=== PATIENT | female | born 1985 | race American Indian/Alaskan Native ===

== ENCOUNTER 2016-11-19 09:13 | Emergency (ER) | payer MEDICARE ==
[2016-11-19 09:42] VITALS: BP 155/83
[2016-11-19 10:09] LABS: Basophils % (Auto) 0.9 % (0.0-1.8); Hematocrit 30.8 % (30.3-42.9); Hemoglobin 10.2 gm/dl (10.1-14.3); Mean Corpuscular HGB Conc 33 % (30-34); Mean Corpuscular Hemoglobin 32 pg (28-32); Mean Corpuscular Volume 97 fl (79-97); Platelet Count 213 K/mm3 (140-440); Red Blood Count 3.16 M/mm3 (3.65-5.03); White Blood Count 7.2 K/mm3 (4.5-11.0)
[2016-11-19 10:29] LABS: Albumin 3.8 g/dL (3.9-5); Albumin/Globulin Ratio 1.4 %; BUN/Creatinine Ratio 4.94; Bilirubin,Total 0.2 mg/dL (0.1-1.2); Potassium 4.3 mmol/L (3.6-5.0); Total Protein 6.6 g/dL (6.3-8.2)
[2016-11-19 10:49] LABS: Calcium 8.7 mg/dL (8.4-10.2)
[2016-11-19 15:55] LABS: Bacteria,Urine 1+ /HPF (Negative); Bilirubin,Urine NEG (Negative); Blood,Urine MOD (Negative); Ketones,Urine NEG (Negative); Leukocyte Esterase,Urine LG (Negative); Nitrite,Urine NEG (Negative); Urobilinogen,Urine < 2.0 mg/dL (<2.0)
[2016-11-19] MEDS ORDERED: XYLOCAINE 1% MPF 5 mL INFILTRATI ONE (17:15)
[2016-11-19] MEDS ORDERED: ROCEPHIN IM STA (17:15)
--- NOTE | 2016-11-19 17:32 | Emergency Department Report ---
Entered by KAREEM KENNEY, acting as scribe for OFE SKINNER PA. <OFE SKINNER - Last Filed: 11/19/16 17:28> ED Abdominal Pain HPI - General Chief Complaint: Abdominal Pain Stated Complaint: POSS UTI Time Seen by Provider: 11/19/16 16:31 Source: patient Mode of arrival: Ambulatory Limitations: No Limitations - History of Present Illness Initial Comments: 30 y/o female with a PMHx of diabetes mellitus, HTN, and renal disease presents to the ED c/o lower abdominal pain that began 1 week ago. Rates pain a 4/10 in severity, which she describes as aching in quality. Aggravated with nothing and alleviated with nothing. Patient states she belives she has a urinary tract infection. Patient reports associated foul smell from vagina, but she denies dysuria, urgency, and frequency. LMP 11/19/2016. NKDA. Denies any fever or chills. Patient is currently on her menstrual cycle. Denies any nausea or vomiting. Denies any back pain. MD Complaint: abdominal pain Onset/Timin -: week(s) Location: LLQ Radiation: none Migration to: no migration Severity: mild Severity scale (0 -10): 4 Quality: aching Consistency: constant Improves With: nothing Worsens With: nothing Context: other (possible UTI) Associated Symptoms: denies other symptoms, other (foul smell from vagina). denies: nausea, vomiting, diarrhea, fever, chills, constipation, dysuria, hematuria Treatments Prior to Arrival: other (none) - Related Data LMP Date: 11/19/16 Previous Rx's Medication Instructions Recorded Last Taken Type Insulin Glargine,Hum.rec.anlog 5 units SQ QHS #30 ml 12/02/15 Unknown Rx [Lantus Solostar] Labetalol [Normodyne TAB] 300 mg PO BID #60 tablet 12/02/15 Unknown Rx Methyldopa-Hctz 250-15 mg 500 mg PO DAILY #30 12/02/15 Unknown Rx NIFEdipine XL [Procardia Xl] 60 mg PO Q12HR #60 tablet 12/02/15 Unknown Rx oxyCODONE /ACETAMINOPHEN [Percocet 1 tab PO Q6HR PRN #20 tablet 12/02/15 Unknown Rx 5/325 mg] Nitrofurantoin [place]/M-Cryst 100 mg PO Q12HR #14 capsule 11/19/16 Unknown Rx [Macrobid CAP] Allergies Allergy/AdvReac Type Severity Reaction Status Date / Time No Known Allergies Allergy Verified 11/19/16 09:37 ED Review of Systems Comment: All other systems reviewed and negative Constitutional: denies: chills, fever ENT: denies: throat pain, congestion Respiratory: denies: cough, orthopnea, shortness of breath, SOB with exertion, SOB at rest, stridor, wheezing Cardiovascular: denies: chest pain, palpitations Gastrointestinal: abdominal pain (LLQ). denies: nausea, vomiting, diarrhea, constipation, hematemesis, melena, hematochezia Genitourinary: other (foul smell from vagina). denies: urgency, dysuria, frequency, hematuria, discharge, abnormal menses Musculoskeletal: denies: back pain, joint swelling, arthralgia, myalgia Skin: denies: rash, lesions Neurological: denies: headache, weakness, numbness, paresthesias ED Past Medical Hx - Past Medical History Previous Medical History?: Yes Hx Hypertension: Yes (12 years ago) Hx Congestive Heart Failure: No Hx Diabetes: Yes (Age 11) Hx Renal Disease: Yes (MWF) Hx Asthma: No Hx COPD: No - Surgical History Past Surgical History?: Yes Additional Surgical History: Fistula to right arm. vas cath to right chest. - Family History Family history: diabetes, hypertension - Social History Smoking Status: Never Smoker Substance Use Type: None - Medications Home Medications: Home Medications Medication Instructions Recorded Confirmed Last Taken Type Insulin Glargine,Hum.rec.anlog 5 units SQ QHS #30 ml 12/02/15 Unknown Rx [Lantus Solostar] Labetalol [Normodyne TAB] 300 mg PO BID #60 tablet 12/02/15 Unknown Rx Methyldopa-Hctz 250-15 mg 500 mg PO DAILY #30 12/02/15 Unknown Rx NIFEdipine XL [Procardia Xl] 60 mg PO Q12HR #60 tablet 12/02/15 Unknown Rx oxyCODONE /ACETAMINOPHEN [Percocet 1 tab PO Q6HR PRN #20 tablet 12/02/15 Unknown Rx 5/325 mg] Nitrofurantoin [place]/M-Cryst 100 mg PO Q12HR #14 capsule 11/19/16 Unknown Rx [Macrobid CAP] ED Physical Exam - General Limitations: No Limitations General appearance: alert, in no apparent distress - Head Head exam: Present: atraumatic, normocephalic, normal inspection - Eye Eye exam: Present: normal appearance, PERRL, EOMI Pupils: Present: normal accommodation - ENT ENT exam: Present: normal exam, normal orophraynx, mucous membranes moist, TM's normal bilaterally, normal external ear exam - Neck Neck exam: Present: normal inspection, full ROM. Absent: tenderness, lymphadenopathy - Respiratory Respiratory exam: Present: normal lung sounds bilaterally. Absent: respiratory distress, wheezes, rales, rhonchi, stridor, accessory muscle use, decreased breath sounds - Cardiovascular Cardiovascular Exam: Present: regular rate, normal rhythm, normal heart sounds - GI/Abdominal GI/Abdominal exam: Present: soft, tenderness (LLQ), normal bowel sounds. Absent : distended, guarding, rebound, rigid, organomegaly, mass, bruit, pulsatile mass - Extremities Exam Extremities exam: Present: normal inspection, full ROM, normal capillary refill , other (No CCE right arm fistula.). Absent: tenderness, pedal edema, joint swelling, calf tenderness - Back Exam Back exam: Present: normal inspection, full ROM. Absent: tenderness, CVA tenderness (R), CVA tenderness (L), muscle spasm, paraspinal tenderness, vertebral tenderness, rash noted - Neurological Exam Neurological exam: Present: alert, oriented X3, normal gait, reflexes normal. Absent: motor sensory deficit - Psychiatric Psychiatric exam: Present: normal affect, normal mood - Skin Skin exam: Present: warm, dry, intact, normal color. Absent: rash ED Course Vital Signs 11/19/16 09:38 Temperature 98.1 F Pulse Rate 83 Respiratory 20 Rate Blood Pressure 155/83 O2 Sat by Pulse 100 Oximetry - Reevaluation(s) Reevaluation #1: 11/19/16 17:22 Patient stable throughout ED course. ED Medical Decision Making - Lab Data Result diagrams: 11/19/16 09:49 11/19/16 09:49 Lab Results 11/19/16 11/19/16 11/19/16 Range/Units 09:43 09:49 09:49 WBC 7.2 (4.5-11.0) K/mm3 RBC 3.16 L (3.65-5.03) M/mm3 Hgb 10.2 (10.1-14.3) gm/dl Hct 30.8 (30.3-42.9) % MCV 97 (79-97) fl MCH 32 (28-32) pg MCHC 33 (30-34) % RDW 17.0 H (13.2-15.2) % Plt Count 213 (140-440) K/mm3 Lymph % (Auto) 27.1 (13.4-35.0) % [place] % (Auto) 8.2 H (0.0-7.3) % Eos % (Auto) 4.0 (0.0-4.3) % Baso % (Auto) 0.9 (0.0-1.8) % Lymph # 2.0 (1.2-5.4) K/mm3 [place] # 0.6 (0.0-0.8) K/mm3 Eos # 0.3 (0.0-0.4) K/mm3 Baso # 0.1 (0.0-0.1) K/mm3 Seg Neutrophils % 59.8 (40.0-70.0) % Seg Neutrophils # 4.3 (1.8-7.7) K/mm3 Sodium 141 (137-145) mmol/L Potassium 4.3 (3.6-5.0) mmol/L Chloride 101.0 (98-107) mmol/L Carbon Dioxide 24 (22-30) mmol/L Anion Gap 20 mmol/L BUN 46 H (7-17) mg/dL Creatinine 9.3 H (0.7-1.2) mg/dL Estimated GFR 6 ml/min BUN/Creatinine Ratio 4.94 % Glucose 113 H (65-100) mg/dL Calcium 8.7 (8.4-10.2) mg/dL Total Bilirubin 0.20 (0.1-1.2) mg/dL AST 17 (5-40) units/L ALT 16 (7-56) units/L Alkaline Phosphatase 102 (35-129) units/L Total Protein 6.6 (6.3-8.2) g/dL Albumin 3.8 L (3.9-5) g/dL Albumin/Globulin Ratio 1.4 % Lipase 53 (13-60) units/L HCG, Qual (Negative) Urine Color Yellow (Yellow) Urine Turbidity Clear (Clear) Urine pH 8.0 H (5.0-7.0) Ur Specific [place] 1.010 (1.003-1.030) Urine Protein 100 mg/dl (Negative) mg/dL Urine Glucose (UA) 150 (Negative) mg/dL Urine Ketones Neg (Negative) mg/dL Urine Blood Mod (Negative) Urine Nitrite Neg (Negative) Urine Bilirubin Neg (Negative) Urine Urobilinogen < 2.0 (<2.0) mg/dL Ur Leukocyte Esterase Lg (Negative) Urine WBC (Auto) 176.0 H (0.0-6.0) /HPF Urine RBC (Auto) 22.0 (0.0-6.0) /HPF U Epithel Cells (Auto) 1.0 (0-13.0) /HPF Urine Bacteria (Auto) 1+ (Negative) /HPF 11/19/16 Range/Units 09:49 WBC (4.5-11.0) K/mm3 RBC (3.65-5.03) M/mm3 Hgb (10.1-14.3) gm/dl Hct (30.3-42.9) % MCV (79-97) fl MCH (28-32) pg MCHC (30-34) % RDW (13.2-15.2) % Plt Count (140-440) K/mm3 Lymph % (Auto) (13.4-35.0) % [place] % (Auto) (0.0-7.3) % Eos % (Auto) (0.0-4.3) % Baso % (Auto) (0.0-1.8) % Lymph # (1.2-5.4) K/mm3 [place] # (0.0-0.8) K/mm3 Eos # (0.0-0.4) K/mm3 Baso # (0.0-0.1) K/mm3 Seg Neutrophils % (40.0-70.0) % Seg Neutrophils # (1.8-7.7) K/mm3 Sodium (137-145) mmol/L Potassium (3.6-5.0) mmol/L Chloride (98-107) mmol/L Carbon Dioxide (22-30) mmol/L Anion Gap mmol/L BUN (7-17) mg/dL Creatinine (0.7-1.2) mg/dL Estimated GFR ml/min BUN/Creatinine Ratio % Glucose (65-100) mg/dL Calcium (8.4-10.2) mg/dL Total Bilirubin (0.1-1.2) mg/dL AST (5-40) units/L ALT (7-56) units/L Alkaline Phosphatase (35-129) units/L Total Protein (6.3-8.2) g/dL Albumin (3.9-5) g/dL Albumin/Globulin Ratio % Lipase (13-60) units/L HCG, Qual Negative (Negative) Urine Color (Yellow) Urine Turbidity (Clear) Urine pH (5.0-7.0) Ur Specific [place] (1.003-1.030) Urine Protein (Negative) mg/dL Urine Glucose (UA) (Negative) mg/dL Urine Ketones (Negative) mg/dL Urine Blood (Negative) Urine Nitrite (Negative) Urine Bilirubin (Negative) Urine Urobilinogen (<2.0) mg/dL Ur Leukocyte Esterase (Negative) Urine WBC (Auto) (0.0-6.0) /HPF Urine RBC (Auto) (0.0-6.0) /HPF U Epithel Cells (Auto) (0-13.0) /HPF Urine Bacteria (Auto) (Negative) /HPF Patient urine culture sent and pending. Moderate blood urine because she started her menses today. She has positive protein and glucose in her urine. He is a diabetic and she is also on dialysis 3 days a week. Serum glucose at 113 - Medical Decision Making ED Course: Is here complaining of left lower quadrant abdominal pain with foul- smelling urine and thinks she has a urinary tract infection because she's had similar incidents in the past. Stable CBC, BUN and creatinine is elevated patient is on dialysis. This is chronic. Her blood glucose is 113. Patient with positive urinary tract infection with moderate amount of present she started her period today, she also has protein and glucose in her urine and she is diabetic. High blood pressure and kidney failure. All lab results and treatment plan explained to patient. test negative. Given Rocephin 1 g IM in emergency room to cover urinary tract infection and also urine culture sent and pending. Patient discharged home in stable condition with prescription for Macrobid and to follow up with her primary care physician in 2 days. ED Disposition Disposition: DC- TO HOME OR SELFCARE Is pt being admited?: No Does the pt Need Aspirin: No Condition: Stable Instructions: Urinary Tract Infection in Women (ED), Abdominal Pain (ED) Additional Instructions: Please follow up with your primary care physician in 2 days. Take Macrobid as prescribed Prescriptions: Nitrofurantoin [place]/M-Cryst [Macrobid CAP] 100 mg PO Q12HR #14 capsule Referrals: LANIE CHURCHILL MD [Primary Care Provider] - 11/21/16 Forms: Work/School Release Form(ED) <KAYLA PATEL P - Last Filed: 11/19/16 18:34> ED Medical Decision Making - Lab Data Result diagrams: 11/19/16 09:49 11/19/16 09:49 This documentation as recorded by the PABLITO gates JASMINE,accurately reflects the service I personally performed and the decisions made by ,OFE SKINNER PA.
== END 2016-11-19 17:43 | disposition home or self-care (01) ==
LOC: ED 09:13
DX: R10.32 Left lower quadrant pain (principal); N89.8 Other specified noninflammatory disorders of vagina; E11.22 Type 2 diabetes mellitus with diabetic chronic kidney disease; I12.0 Hypertensive chronic kidney disease with stage 5 chronic kidney disease or end stage renal disease; N18.6 End stage renal disease; Z99.2 Dependence on renal dialysis
CPT/HCPCS: 36415; 80053; 81001; 83690; 84703; 85025; 87076; 87086; 87186; 96372; 99283; J0696

== ENCOUNTER 2017-05-18 11:34 | Emergency (ER) | payer MEDICARE ==
[2017-05-18 12:51] LABS: Basophils % (Auto) 0.9 % (0.0-1.8); Calcium 8.8 mg/dL (8.4-10.2); Chloride 101.7 mmol/L (98-107); Eosinophils % (Auto) 3.4 % (0.0-4.3); Hematocrit 31.6 % (30.3-42.9); Hemoglobin 10.6 gm/dl (10.1-14.3); Mean Corpuscular HGB Conc 33 % (30-34); Mean Corpuscular Hemoglobin 33 pg (28-32); Mean Corpuscular Volume 99 fl (79-97); Platelet Count 182 K/mm3 (140-440); Potassium 4.3 mmol/L (3.6-5.0); Red Blood Count 3.21 M/mm3 (3.65-5.03); Red Cell Distribution Width 16.3 % (13.2-15.2); White Blood Count 5.2 K/mm3 (4.5-11.0)
[2017-05-18] MEDS ORDERED: CATAPRES PO ONE (17:15)
[2017-05-18] MEDS ORDERED: NORCO 5/325 PO ONE (17:35)
--- NOTE | 2017-05-18 17:41 | Emergency Department Report ---
HPI - General Chief Complaint: High BP Time Seen by Provider: 05/18/17 17:15 - HPI HPI: Pfeiffer 24 The patient is a 31-year-old female presenting with a chief complaint of hypertension. The patient states she was at hemodialysis today and was felt to be hypertensive with a systolic of 230. The patient states she developed a "pounding" headache and sharp left-sided chest pain that has been constant while at dialysis. Patient did admit to some shortness of breath but denies nausea/vomiting or diaphoresis. The patient states she had a normal cardiac catheterization 2 months ago at [facility] Location: [See above] Duration: One day Quality: "Pounding" Severity: 03/10 Modifying factors: [see above] Context: [see above] Mode of transportation: [not driving] ED Past Medical Hx - Past Medical History Previous Medical History?: Yes Hx Hypertension: Yes (12 years ago) Hx Diabetes: Yes (Age 11) Hx Renal Disease: Yes (MWF) - Surgical History Past Surgical History?: Yes Additional Surgical History: Fistula to right arm. vas cath to right chest. - Family History Family history: no significant - Social History Smoking Status: Never Smoker Substance Use Type: None - Medications Home Medications: Home Medications Medication Instructions Recorded Confirmed Last Taken Type Insulin Glargine,Hum.rec.anlog 5 units SQ QHS #30 ml 12/02/15 12/16/16 12/15/16 Rx [Lantus Solostar] Cholecalciferol (Vitamin D3) 2,000 unit PO QDAY 12/16/16 12/16/16 12/15/16 History [Vitamin D3 2,000 unit] Acetaminophen [Acetaminophen TAB] 325 mg PO Q4H PRN #30 tablet 12/18/16 Unknown Rx Labetalol [Normodyne TAB] 400 mg PO BID #60 tablet 12/18/16 Unknown Rx Losartan [Cozaar] 50 mg PO QDAY #30 tablet 12/18/16 Unknown Rx Methyldopa [Aldomet] 250 mg PO BID #60 tablet 12/18/16 Unknown Rx amLODIPine [Norvasc] 10 mg PO QDAY #30 tablet 12/18/16 Unknown Rx oxyCODONE /ACETAMINOPHEN [Percocet 1 tab PO Q6H PRN #30 tablet 12/18/16 Unknown Rx 5/325 mg] ED Review of Systems ROS: Stated complaint: HYPERTENSIVE/SOB Other details as noted in HPI Constitutional: denies: diaphoresis Eyes: other Respiratory: shortness of breath (right subconjunctival hemorrhage) Cardiovascular: chest pain Gastrointestinal: denies: nausea, vomiting Neurological: headache Physical Exam - Physical Exam Vital Signs: Vital Signs 05/18/17 05/18/17 05/18/17 12:04 15:52 15:57 Temperature 99.2 F Pulse Rate 83 80 Respiratory 18 18 18 Rate Blood Pressure 171/91 Blood Pressure 204/95 [Left] O2 Sat by Pulse 98 98 98 Oximetry 05/18/17 17:26 Temperature Pulse Rate 80 Respiratory Rate Blood Pressure 204/95 Blood Pressure [Left] O2 Sat by Pulse Oximetry Physical Exam: GENERAL: The patient is well-developed well-nourished female resting on stretcher not appearing to be in acute distress. [] HEENT: Normocephalic. Atraumatic. Extraocular motions are intact. Patient has moist mucous membranes. NECK: Supple. No meningitic signs are noted. Trachea midline CHEST/LUNGS: Clear to auscultation. There is no respiratory distress noted. HEART/CARDIOVASCULAR: Regular. There is no tachycardia. There is no gallop rub or murmur. ABDOMEN: Abdomen is soft, nontender. Patient has normal bowel sounds. There is no abdominal distention. SKIN: There is no rash. There is no edema. There is no diaphoresis. NEURO: The patient is awake, alert, and oriented. The patient is cooperative. The patient has no focal neurologic deficits. The patient has normal speech. Cranial nerves II through XII grossly intact, no drift MUSCULOSKELETAL: There is no evidence of acute injury. ED Course Vital Signs 05/18/17 05/18/17 05/18/17 12:04 15:52 15:57 Temperature 99.2 F Pulse Rate 83 80 Respiratory 18 18 18 Rate Blood Pressure 171/91 Blood Pressure 204/95 [Left] O2 Sat by Pulse 98 98 98 Oximetry 05/18/17 17:26 Temperature Pulse Rate 80 Respiratory Rate Blood Pressure 204/95 Blood Pressure [Left] O2 Sat by Pulse Oximetry ED Medical Decision Making - Lab Data Result diagrams: 05/18/17 12:17 05/18/17 12:17 Laboratory Tests 05/18/17 05/18/17 05/18/17 12:17 12:17 15:25 WBC 5.2 RBC 3.21 L Hgb 10.6 Hct 31.6 MCV 99 H MCH 33 H MCHC 33 RDW 16.3 H Plt Count 182 Lymph % (Auto) 20.9 [place] % (Auto) 5.9 Eos % (Auto) 3.4 Baso % (Auto) 0.9 Lymph # 1.1 L [place] # 0.3 Eos # 0.2 Baso # 0.0 Seg Neutrophils % 68.9 Seg Neutrophils # 3.6 Sodium 141 Potassium 4.3 Chloride 101.7 Carbon Dioxide 24 Anion Gap 20 BUN 27 H Creatinine 5.5 H Estimated GFR 11 BUN/Creatinine Ratio 5 Glucose 146 H Calcium 8.8 Troponin T 0.013 0.012 HCG, Qual 05/18/17 05/18/17 17:34 17:40 WBC RBC Hgb Hct MCV MCH MCHC RDW Plt Count Lymph % (Auto) [place] % (Auto) Eos % (Auto) Baso % (Auto) Lymph # [place] # Eos # Baso # Seg Neutrophils % Seg Neutrophils # Sodium Potassium Chloride Carbon Dioxide Anion Gap BUN Creatinine Estimated GFR BUN/Creatinine Ratio Glucose Calcium Troponin T 0.010 HCG, Qual Negative - EKG Data -: EKG Interpreted by Nd EKG shows normal: sinus rhythm Rate: normal - EKG Data When compared to previous EKG there are: previous EKG unavailable Interpretation: nonspecific ST-T wave rosita (T-wave inversion in lead V2) - Radiology Data Radiology results: report reviewed (CT head), image reviewed (CT head) FINAL REPORT PROCEDURE: CT HEAD/BRAIN WO CON TECHNIQUE: Computerized tomography of the head was performed without contrast material. HISTORY: hypertension, headache COMPARISON: No prior studies are available for comparison. FINDINGS: There is no CT evidence of intracranial mass, hemorrhage, acute territorial infarction, or hydrocephalus. Bilateral dural calcifications are noted. Intracranial arteries are symmetric in density. Calvarium is intact. There is mild right sphenoid sinus mucosal thickening. IMPRESSION: No CT evidence of acute intracranial abnormality Transcribed By: [facility] Dictated By: KURTIS HENLEY M.D. Electronically Authenticated By: KURTIS HENLEY M.D. Signed Date/Time: 05/18/17 1525 DD/ 1525 TD/TT: 05/18/17 1525 - Medical Decision Making Patient had normal cardiac catheterization 2 months ago ruling out obstructive disease. Patient's symptoms likely a function of her hypertension. Will control blood pressure - Differential Diagnosis hypertensive urgency, ACS, intracranial hemorrhage Critical care attestation.: If time is entered above; I have spent that time in minutes in the direct care of this critically ill patient, excluding procedure time. ED Disposition Clinical Impression: Hypertensive urgency Disposition: DC-01 TO HOME OR SELFCARE Is pt being admited?: No Does the pt Need Aspirin: No Condition: Stable Instructions: Hypertensive Crisis (ED) Additional Instructions: Return to the emergency department immediately should you develop worsening symptoms, fever, inability to tolerate food or liquid or any other concerns. Referrals: PRIMARY CARE, [Primary Care Provider] - 3-5 Days LANIE CHURCHILL MD [Staff Physician] - [facility] Time of Disposition: 21:35
[2017-05-18] MEDS ORDERED: APRESOLINE IV ONE ×2 (19:07→19:46)
--- NOTE | 2017-05-18 19:28 | Cat Scan Report ---
FINAL REPORT PROCEDURE: CT HEAD/BRAIN WO CON TECHNIQUE: Computerized tomography of the head was performed without contrast material. HISTORY: hypertension, headache COMPARISON: No prior studies are available for comparison. FINDINGS: There is no CT evidence of intracranial mass, hemorrhage, acute territorial infarction, or hydrocephalus. Bilateral dural calcifications are noted. Intracranial arteries are symmetric in density. Calvarium is intact. There is mild right sphenoid sinus mucosal thickening. IMPRESSION: No CT evidence of acute intracranial abnormality
[2017-05-18 21:36] VITALS: BP 129/71
== END 2017-05-18 21:56 | disposition home or self-care (01) ==
LOC: ED 11:34
DX: I16.0 Hypertensive urgency (principal); I12.0 Hypertensive chronic kidney disease with stage 5 chronic kidney disease or end stage renal disease; N18.6 End stage renal disease; E11.22 Type 2 diabetes mellitus with diabetic chronic kidney disease; Z99.2 Dependence on renal dialysis
CPT/HCPCS: 36415; 70450; 80048; 84484; 84703; 85025; 93005; 93010; 96374; 96376; 99284; J0360

== ENCOUNTER 2017-05-19 00:24 | Inpatient (IN) | payer MEDICARE ==
[2017-05-19 03:32] LABS: Albumin 4.3 g/dL (3.9-5); Albumin/Globulin Ratio 1.7 %; Bilirubin,Total 0.6 mg/dL (0.1-1.2); Calcium 9.5 mg/dL (8.4-10.2); Chloride 101.8 mmol/L (98-107); Potassium 5.5 mmol/L (3.6-5.0); Total Protein 6.8 g/dL (6.3-8.2)
[2017-05-19 03:35] LABS: Basophils % (Auto) 0.9 % (0.0-1.8); Eosinophils % (Auto) 3.2 % (0.0-4.3); Hematocrit 33.8 % (30.3-42.9); Hemoglobin 11.1 gm/dl (10.1-14.3); Mean Corpuscular HGB Conc 33 % (30-34); Mean Corpuscular Hemoglobin 32 pg (28-32); Mean Corpuscular Volume 99 fl (79-97); Platelet Count 203 K/mm3 (140-440); Red Blood Count 3.42 M/mm3 (3.65-5.03); Red Cell Distribution Width 16.5 % (13.2-15.2); White Blood Count 5.8 K/mm3 (4.5-11.0)
[2017-05-19 14:58] LABS: Bilirubin,Urine NEG (Negative); Blood,Urine SM (Negative); Ketones,Urine NEG (Negative); Leukocyte Esterase,Urine NEG (Negative); Nitrite,Urine NEG (Negative); Urobilinogen,Urine < 2.0 mg/dL (<2.0)
[2017-05-19] MEDS ORDERED: NORMODYNE IV ONE (17:17)
[2017-05-19] MEDS ORDERED: D50W (25GM) Syringe IV ONE (17:17)
[2017-05-19] MEDS ORDERED: DILAUDID IV ONE (17:17)
[2017-05-19] MEDS ORDERED: ZOFRAN IV ONE (17:17)
[2017-05-19] MEDS ORDERED: SODIUM BICARBONATE IV ONE (17:17)
--- NOTE | 2017-05-19 17:20 | Emergency Department Report ---
ED General Adult HPI - General Chief complaint: Abdominal Pain Stated complaint: VOMITING Time Seen by Provider: 05/19/17 17:07 Source: patient, RN notes reviewed, old records reviewed Mode of arrival: Ambulatory Limitations: No Limitations - History of Present Illness Initial comments: Nephrology: Dr. Villatoro Past medical history: Hypertension, diabetes, end-stage renal disease on dialysis As a 31-year-old female. The patient presents to the ER with a complaint of abdominal pain, nausea and vomiting. The abdominal pain started last night. It is in the bilateral lower quadrants. It is sharp. It increases with palpation. It decreases with rest. No irritative or obstructive urinary symptoms. Chronic vaginal discharge which is not a new worsening or different. No sexual contacts within the past year. Patient reports no chest pain, no shortness of breath, complains of mild throbbing headache, 4 episodes of nonbloody, nonbilious emesis. -: Gradual Location: abdomen Severity scale (0 -10): 10 Quality: aching Consistency: constant Improves with: rest Worsens with: movement Associated Symptoms: headaches, loss of appetite, malaise, nausea/vomiting, weakness. denies: confusion, chest pain, cough, diaphoresis, fever/chills - Related Data Home Medications Medication Instructions Recorded Confirmed Last Taken Cholecalciferol (Vitamin D3) 2,000 unit PO DAILY 12/16/16 05/19/17 05/18/17 [Vitamin D3 2,000 unit] Labetalol HCl 300 mg PO BID 05/19/17 05/19/17 05/18/17 Losartan Potassium [Cozaar] 50 mg PO BID 05/19/17 05/19/17 05/18/17 Methyldopa [Aldomet] 500 mg PO DAILY 05/19/17 05/19/17 05/18/17 amLODIPine [Norvasc] 10 mg PO DAILY 05/19/17 05/19/17 05/18/17 Allergies Allergy/AdvReac Type Severity Reaction Status Date / Time No Known Allergies Allergy Verified 12/15/16 10:43 ED Review of Systems ROS: Stated complaint: VOMITING Other details as noted in HPI Constitutional: malaise. denies: fever ENT: denies: epistaxis Respiratory: denies: cough Cardiovascular: chest pain Gastrointestinal: abdominal pain, nausea, vomiting Genitourinary: denies: dysuria Musculoskeletal: as per HPI Neurological: headache ED Past Medical Hx - Past Medical History Previous Medical History?: Yes Hx Hypertension: Yes (12 years ago) Hx Congestive Heart Failure: No Hx Diabetes: Yes (Age 11) Hx Renal Disease: Yes (MWF) Hx Asthma: No Hx COPD: No - Surgical History Past Surgical History?: Yes Additional Surgical History: Fistula to right arm. vas cath to right chest. - Social History Smoking Status: Never Smoker - Medications Home Medications: Home Medications Medication Instructions Recorded Confirmed Last Taken Type Cholecalciferol (Vitamin D3) 2,000 unit PO DAILY 12/16/16 05/19/17 05/18/17 History [Vitamin D3 2,000 unit] Labetalol HCl 300 mg PO BID 05/19/17 05/19/17 05/18/17 History Losartan Potassium [Cozaar] 50 mg PO BID 05/19/17 05/19/17 05/18/17 History Methyldopa [Aldomet] 500 mg PO DAILY 05/19/17 05/19/17 05/18/17 History amLODIPine [Norvasc] 10 mg PO DAILY 05/19/17 05/19/17 05/18/17 History ED Physical Exam - General Limitations: No Limitations General appearance: alert, in no apparent distress - Head Head exam: Present: atraumatic, normocephalic - Eye Eye exam: Present: normal appearance, PERRL, EOMI, other (visual acuity intact to finger counting, color perception, reading at a close distance). Absent: nystagmus - ENT ENT exam: Present: normal exam, normal orophraynx, mucous membranes moist, normal external ear exam - Neck Neck exam: Present: normal inspection, full ROM - Respiratory Respiratory exam: Present: normal lung sounds bilaterally. Absent: respiratory distress, chest wall tenderness - Cardiovascular Cardiovascular Exam: Present: regular rate, normal rhythm, normal heart sounds. Absent: systolic murmur, diastolic murmur, rubs, gallop - GI/Abdominal GI/Abdominal exam: Present: soft, tenderness, normal bowel sounds, other (his bilateral lower quadrant abdominal tenderness, there is no rebound, guarding or peritoneal signs). Absent: distended, guarding, rebound, rigid, pulsatile mass - Extremities Exam Extremities exam: Present: normal inspection, full ROM, normal capillary refill , other (there is a right upper extremity AV fistula, appropriate throat, no redness, pus or streaking). Absent: pedal edema, joint swelling, calf tenderness - Back Exam Back exam: Present: normal inspection, full ROM. Absent: tenderness, CVA tenderness (R), paraspinal tenderness, vertebral tenderness - Neurological Exam Neurological exam: Present: alert, oriented X3, CN II-XII intact, other ( Extraocular movements intact. Tongue midline. No facial droop. Facial sensation intact to light touch in the V1, V2, V3 distribution bilaterally. 5 and 5 strength in 4 extremities.. Sensation is intact to light touch in 4 extremities.). Absent: motor sensory deficit - Psychiatric Psychiatric exam: Present: normal affect, normal mood - Skin Skin exam: Present: warm, dry, intact, normal color. Absent: rash ED Course Vital Signs 05/19/17 05/19/17 05/19/17 01:43 02:43 11:57 Temperature 98.7 F 99 F Pulse Rate 79 78 80 Respiratory 16 20 Rate Blood Pressure 134/77 134/77 Blood Pressure 140/77 [Left] O2 Sat by Pulse 98 98 99 Oximetry 05/19/17 05/19/17 05/19/17 17:00 18:57 19:01 Temperature Pulse Rate 84 82 Respiratory 8 L 9 L Rate Blood Pressure Blood Pressure [Left] O2 Sat by Pulse 100 96 96 Oximetry 05/19/17 05/19/17 05/19/17 19:15 19:24 19:30 Temperature Pulse Rate 82 67 84 Respiratory 12 14 Rate Blood Pressure 132/69 152/99 171/80 Blood Pressure [Left] O2 Sat by Pulse 94 94 Oximetry 05/19/17 05/19/17 05/19/17 20:01 20:30 21:00 Temperature Pulse Rate Respiratory Rate Blood Pressure 171/80 152/79 145/78 Blood Pressure [Left] O2 Sat by Pulse 99 93 95 Oximetry 05/19/17 05/19/17 05/19/17 21:30 22:00 22:15 Temperature Pulse Rate Respiratory Rate Blood Pressure 158/79 155/75 155/75 Blood Pressure [Left] O2 Sat by Pulse 96 94 98 Oximetry 05/19/17 05/19/17 05/20/17 22:30 23:00 00:09 Temperature Pulse Rate 80 81 Respiratory 13 14 Rate Blood Pressure 162/85 160/94 160/94 Blood Pressure [Left] O2 Sat by Pulse 95 94 Oximetry - Reevaluation(s) Reevaluation #1: 05/19/17 17:57 Differential diagnosis, including but not limited to cholecystitis, appendicitis , colitis, diverticulitis, perforated viscus, hypertensive urgency, hyperkalemia , urinary tract infection Assessment and plan: 31-year-old female, dialysis patient, makes urine, with bilateral lower quadrant abdominal tenderness. She is afebrile with markedly elevated blood pressure, currently in the mid 200s. Labetalol ordered, laboratory studies indicate hyperkalemia with chronic renal insufficiency, potassium noted to be 5.5, EKG is pending. Kayexalate will be held pending CT scan report and results, as I did not want to precipitate a colonic perforation. Case presented to her covering artificial log machine operator, Dr. Villatoro who will follow in consultation and arrange dialysis. The patient will be treated medically for her hyperkalemia, and she will be given pain medication, nausea medication. We will reassess once her CT scan has resulted, her urinalysis is reviewed and appreciated, is not consistent with urinary tract infection, patient had a negative test yesterday. Reevaluation #2: 05/19/17 19:[address] scan interpretation pending. Patient feels improved. Reevaluation #3: 05/19/17 21:[address] scan of the abdomen and pelvis demonstrates no acute findings. Stranding around the kidneys is suggested, however the patient has no CVA tenderness, and the urinalysis does not suggest her corroborate urinary tract infection. Therefore, clinically I think pyelonephritis is very unlikely. Hospital physician is paged to arrange admission. Reevaluation #4: 05/19/17 22:[address] scan negative, Kayexalate ordered. Reevaluation #5: 05/19/17 23:00 Dr. Mcgregor, the hospital physician, accepted the patient to the medical service. ED Medical Decision Making - Lab Data Result diagrams: 05/19/17 02:57 05/19/17 02:57 Vital Signs 05/19/17 05/19/17 02:43 11:57 Temperature 98.7 F 99 F Pulse Rate 78 80 Respiratory 16 20 Rate Blood Pressure 134/77 Blood Pressure 140/77 [Left] O2 Sat by Pulse 98 99 Oximetry Labs 05/19/17 05/19/17 05/19/17 02:57 02:57 14:33 WBC 5.8 RBC 3.42 L Hgb 11.1 Hct 33.8 MCV 99 H MCH 32 MCHC 33 RDW 16.5 H Plt Count 203 Lymph % (Auto) 17.9 [place] % (Auto) 7.6 H Eos % (Auto) 3.2 Baso % (Auto) 0.9 Lymph # 1.0 L [place] # 0.4 Eos # 0.2 Baso # 0.1 Seg Neutrophils % 70.4 H Seg Neutrophils # 4.1 Sodium 143 Potassium 5.5 H D Chloride 101.8 Carbon Dioxide 25 Anion Gap 22 BUN 41 H Creatinine 7.5 H Estimated GFR 8 BUN/Creatinine Ratio 5 Glucose 166 H Calcium 9.5 Total Bilirubin 0.60 AST 14 ALT 18 Alkaline Phosphatase 81 Total Protein 6.8 Albumin 4.3 Albumin/Globulin Ratio 1.7 Lipase 113 H Urine Color Yellow Urine Turbidity Clear Urine pH 8.0 H Ur Specific [place] 1.011 Urine Protein 100 mg/dl Urine Glucose (UA) 150 Urine Ketones Neg Urine Blood Sm Urine Nitrite Neg Urine Bilirubin Neg Urine Urobilinogen < 2.0 Ur Leukocyte Esterase Neg Urine WBC (Auto) 1.0 Urine RBC (Auto) 1.0 - EKG Data -: EKG Interpreted by Ct EKG shows normal: sinus rhythm Rate: normal - EKG Data When compared to previous EKG there are: no significant change Interpretation: unchanged when compared t 05/19/17 18:12 Normal sinus, 81 bpm, normal axis, QTC 461 ms, normal intervals, biphasic T-wave , appears unchanged compared to prior EKG from 12/15/2016, not a STEMI. - Radiology Data Radiology results: report reviewed, image reviewed Noncontrast CT scan of the abdomen and pelvis, interpreted by radiology: No acute disease, possible perinephric stranding. No obvious abscess. Critical care attestation.: If time is entered above; I have spent that time in minutes in the direct care of this critically ill patient, excluding procedure time. ED Disposition Clinical Impression: Renal failure, Hypertensive emergency, Nausea and vomiting, Hyperkalemia Disposition: OP ADMIT IP TO THIS HOSP Is pt being admited?: Yes Condition: Good
--- NOTE | 2017-05-19 21:21 | Cat Scan Report ---
FINAL REPORT PROCEDURE: CT ABDOMEN PELVIS WO CON TECHNIQUE: Computerized axial tomography of the abdomen and pelvis was performed without intravenous contrast. This study is performed without intravascular contrast material and its sensitivity for abdominal and pelvic pathology, including neoplasms, inflammation, abscess, free fluid, thrombosis, arterial dissection and infarction, is reduced compared with a contrast enhanced study. HISTORY: abd pain n/v COMPARISON: 10/03/2015 FINDINGS: Visualized lower thorax: Heart mildly enlarged. Minimal lower lung zone atelectasis. Liver: Diffuse fatty infiltration of liver. Spleen: Mild splenic enlargement. Gallbladder and biliary system: Normal. Pancreas: Normal. Adrenals: Normal. Kidneys: Mild stranding around each kidney GI tract: No oral contrast. Normal caliber appendix. Lymph nodes and mesentery: Normal. Vasculature: Normal. Bladder: Normal. Reproductive organs: Heterogeneous uterus with IUD in place Peritoneum: Trace free fluid in the posterior cul-de-sac. Musculoskeletal structures: No significant abnormality. Other: Mild disc bulging L4-5 L5-S1 IMPRESSION: No definite evidence of acute abdominal pelvic pathology seen at this time. Mild stranding around each kidney with slight indistinctness on the right. Pyelonephritis not excludable. Consider CT scan with IV contrast including delays if there is concern in that regard.
[2017-05-19] MEDS ORDERED: KIONEX PO ONE (22:00)
[2017-05-19] MEDS ORDERED: MORPHINE IV PRN (23:19)
[2017-05-19] MEDS ORDERED: DULCOLAX PR PRN (23:19)
[2017-05-19] MEDS ORDERED: ZOFRAN IV PRN (23:19)
[2017-05-19] MEDS ORDERED: APRESOLINE IV PRN (23:19)
--- NOTE | 2017-05-19 23:23 | History and Physical Report ---
History of Present Illness Date of examination: 05/19/17 History of present illness: 31-year-old man with a history of hypertension, diabetes, end-stage renal disease on dialysis was sent from dialysis to the ER yesterday after dialysis for blood pressure control. Patient was discharged home and return today because of persistent nausea and vomiting, unable to tolerate oral intake. Also complaining of left lower abdominal pain which she described as sharp pain , intermittent in nature, unable to say along the last 4, intensity 5/10, no radiation cannot identify exacerbating or relieving factors Review Of Systems: Constitutional: no weight loss Ears, eyes, nose, mouth and throat: no nasal congestion, no nasal discharge, no sinus pressure, blurry vision, diplopia Neck: No neck pain or rigidity. Cardiovascular: No chest pain, palpitations Respiratory: No shortness of breath, cough Gastrointestinal: No abdominal pain, hematochezia Genitourinary : no dysuria, frequency , hematuria Musculoskeletal: no muscle ache Integumentary: no rash, no pruritis Neurological: no parathesias, focal weakness Endocrine: no cold or heat intolerance, no polyuria or polydipsia Hematologic/Lymphatic: no easy bruising, no easy bleeding, no gland swelling Allergic/Immunologic: no urticaria, no angioedema. PAST MEDICAL HISTORY:hypertension, diabetes, end-stage renal disease on dialysis PAST SURGICAL HISTORY: AV fistula SOCIAL HISTORY: Denies alcohol, tobacco, drugs FAMILY HISTORY: Hypertension Medications and Allergies Allergies Allergy/AdvReac Type Severity Reaction Status Date / Time No Known Allergies Allergy Verified 12/15/16 10:43 Home Medications Medication Instructions Recorded Confirmed Last Taken Type Cholecalciferol (Vitamin D3) 2,000 unit PO DAILY 12/16/16 05/19/17 05/18/17 History [Vitamin D3 2,000 unit] Labetalol HCl 300 mg PO BID 05/19/17 05/19/17 05/18/17 History Losartan Potassium [Cozaar] 50 mg PO BID 05/19/17 05/19/17 05/18/17 History Methyldopa [Aldomet] 500 mg PO DAILY 05/19/17 05/19/17 05/18/17 History amLODIPine [Norvasc] 10 mg PO DAILY 05/19/17 05/19/17 05/18/17 History Active Meds: Active Medications Acetaminophen (Tylenol) 650 mg PO Q4H PRN PRN Reason: Pain MILD(1-3)/Fever >100.5/BARAJAS Bisacodyl (Dulcolax) 10 mg NM QDAY PRN PRN Reason: Constipation unrelieved by MOM Exam - Physical Exam Narrative exam: Gen. appearance: Patient lying in bed in no acute distress HEENT: Normocephalic/atraumatic, pupils equal round reactive to light, extra occular movement intact, no scleral icterus, no JVD or thyromegaly or nodule, neck is supple, mucous membrane moist, no erythema or exudate Heart: S1-S2, regular rate and rhythm Lungs: Clear to auscultation bilateral breathing comfortable Abdomen: Positive bowel sounds, tender in left lower abdomen, nondistended, no organomegaly Extremities: No edema, cyanosis, clubbing Neuro:: Oriented 3 , cranial nerves II-12 intact, speech, motor intact Skin: No rash, nodules, warm dry - Constitutional Vitals: Temp Pulse Resp BP Pulse Ox 99 F 84 14 155/75 94 05/19/17 11:57 05/19/17 19:30 05/19/17 19:30 05/19/17 22:00 05/19/17 22:00 Results - Labs CBC & Chem 7: 05/19/17 02:57 05/19/17 02:57 Labs: Abnormal lab results 05/19/17 05/19/17 05/19/17 Range/Units 02:57 02:57 14:33 RBC 3.42 L (3.65-5.03) M/mm3 MCV 99 H (79-97) fl RDW 16.5 H (13.2-15.2) % [place] % (Auto) 7.6 H (0.0-7.3) % Lymph # 1.0 L (1.2-5.4) K/mm3 Seg Neutrophils % 70.4 H (40.0-70.0) % Potassium 5.5 H D (3.6-5.0) mmol/L BUN 41 H (7-17) mg/dL Creatinine 7.5 H (0.7-1.2) mg/dL Glucose 166 H (65-100) mg/dL Lipase 113 H (13-60) units/L Urine pH 8.0 H (5.0-7.0) - Imaging and Cardiology CT scan - abdomen: report reviewed CT scan - pelvis: report reviewed Assessment and Plan Assessment Hypertensive urgency Hyperkalemia End-stage renal disease on dialysis Diabetes type 2 Plan Admit to medicine IV hydralazine for blood pressure control, antiemetics, status post, potassium cocktail Check fingersticks initiate insulin sliding scale, start DVT prophylaxis Consult renal
[2017-05-20] MEDS ORDERED: REGLAN IV PRN (00:41)
[2017-05-20] MEDS: APRESOLINE IV PRN ×2 (01:17→20:13)
[2017-05-20] MEDS ORDERED: ZOFRAN ONE (01:21)
[2017-05-20 06:18] LABS: Basophils % (Auto) 0.8 % (0.0-1.8); Eosinophils % (Auto) 3.5 % (0.0-4.3); Hematocrit 32.2 % (30.3-42.9); Hemoglobin 10.4 gm/dl (10.1-14.3); Mean Corpuscular HGB Conc 32 % (30-34); Mean Corpuscular Hemoglobin 32 pg (28-32); Mean Corpuscular Volume 100 fl (79-97); Platelet Count 180 K/mm3 (140-440); Red Blood Count 3.23 M/mm3 (3.65-5.03); Red Cell Distribution Width 16.2 % (13.2-15.2); White Blood Count 4.7 K/mm3 (4.5-11.0)
[2017-05-20 06:41] LABS: Calcium 9.2 mg/dL (8.4-10.2); Chloride 103.9 mmol/L (98-107); Potassium 4.9 mmol/L (3.6-5.0)
[2017-05-20] MEDS ORDERED: NACL 0.9% 100 ML IV PRN (07:09)
--- NOTE | 2017-05-20 08:43 | Progress Note ---
<TINY FOOTE - Last Filed: 05/20/17 15:09> Assessment and Plan Assessment and plan: 31-year-old man with a history of hypertension, diabetes, end-stage renal disease on dialysis was sent from dialysis to the ER yesterday after dialysis for blood pressure control. Hypertensive urgency Continue home antihypertensive medications IV hydralazine for SBP>160 Closely monitor blood pressure End-stage renal disease on dialysis Nephrology consulted Hyperkalemia Patient will have dialysis today that will correct it. Diabetes mellitus Accu-Chek before meals and at bedtime Sliding scale insulin/NovoLog ADA carbohydrate consistent diet DVT prophylaxis Heparin History Interval history: Patient denies having pain.Labs and nursing notes reviewed. Hospitalist Physical - Constitutional Vitals: Temp Pulse Resp BP Pulse Ox 98.9 F 88 20 174/79 97 05/20/17 06:23 05/20/17 06:23 05/20/17 06:23 05/20/17 06:23 05/20/17 06:23 General appearance: Present: no acute distress - EENT Eyes: Present: PERRL ENT: hearing intact - Neck Neck: Present: supple - Respiratory Respiratory effort: normal Respiratory: bilateral: CTA - Cardiovascular Rhythm: regular Heart Sounds: Present: S1 & S2 - Abdominal General gastrointestinal: soft, non-tender - Integumentary Integumentary: Present: clear, warm, dry - Psychiatric Psychiatric: appropriate mood/affect - Neurologic Neurologic: moves all extremities - Allied Health Allied health notes reviewed: nursing Results - Labs CBC & Chem 7: 05/20/17 04:58 05/20/17 04:58 Labs: Laboratory Last Values WBC 4.7 K/mm3 (4.5-11.0) 05/20/17 04:58 RBC 3.23 M/mm3 (3.65-5.03) L 05/20/17 04:58 Hgb 10.4 gm/dl (10.1-14.3) 05/20/17 04:58 Hct 32.2 % (30.3-42.9) 05/20/17 04:58 MCV 100 fl (79-97) H 05/20/17 04:58 MCH 32 pg (28-32) 05/20/17 04:58 MCHC 32 % (30-34) 05/20/17 04:58 RDW 16.2 % (13.2-15.2) H 05/20/17 04:58 Plt Count 180 K/mm3 (140-440) 05/20/17 04:58 Lymph % (Auto) 30.5 % (13.4-35.0) 05/20/17 04:58 [place] % (Auto) 7.9 % (0.0-7.3) H 05/20/17 04:58 Eos % (Auto) 3.5 % (0.0-4.3) 05/20/17 04:58 Baso % (Auto) 0.8 % (0.0-1.8) 05/20/17 04:58 Lymph # 1.4 K/mm3 (1.2-5.4) 05/20/17 04:58 [place] # 0.4 K/mm3 (0.0-0.8) 05/20/17 04:58 Eos # 0.2 K/mm3 (0.0-0.4) 05/20/17 04:58 Baso # 0.0 K/mm3 (0.0-0.1) 05/20/17 04:58 Seg Neutrophils % 57.3 % (40.0-70.0) 05/20/17 04:58 Seg Neutrophils # 2.7 K/mm3 (1.8-7.7) 05/20/17 04:58 Sodium 144 mmol/L (137-145) 05/20/17 04:58 Potassium 4.9 mmol/L (3.6-5.0) 05/20/17 04:58 Chloride 103.9 mmol/L (98-107) 05/20/17 04:58 Carbon Dioxide 22 mmol/L (22-30) 05/20/17 04:58 Anion Gap 23 mmol/L 05/20/17 04:58 BUN 53 mg/dL (7-17) H 05/20/17 04:58 Creatinine 8.9 mg/dL (0.7-1.2) H 05/20/17 04:58 Estimated GFR 6 ml/min 05/20/17 04:58 BUN/Creatinine Ratio 6 % 05/20/17 04:58 Glucose 110 mg/dL (65-100) H 05/20/17 04:58 POC Glucose 120 (70-105) H 05/20/17 02:03 Calcium 9.2 mg/dL (8.4-10.2) 05/20/17 04:58 Total Bilirubin 0.60 mg/dL (0.1-1.2) 05/19/17 02:57 AST 14 units/L (5-40) 05/19/17 02:57 ALT 18 units/L (7-56) 05/19/17 02:57 Alkaline Phosphatase 81 units/L (35-129) 05/19/17 02:57 Total Protein 6.8 g/dL (6.3-8.2) 05/19/17 02:57 Albumin 4.3 g/dL (3.9-5) 05/19/17 02:57 Albumin/Globulin Ratio 1.7 % 05/19/17 02:57 Lipase 113 units/L (13-60) H 05/19/17 02:57 Urine Color Yellow (Yellow) 05/19/17 14:33 Urine Turbidity Clear (Clear) 05/19/17 14:33 Urine pH 8.0 (5.0-7.0) H 05/19/17 14:33 Ur Specific [place] 1.011 (1.003-1.030) 05/19/17 14:33 Urine Protein 100 mg/dl mg/dL (Negative) 05/19/17 14:33 Urine Glucose (UA) 150 mg/dL (Negative) 05/19/17 14:33 Urine Ketones Neg mg/dL (Negative) 05/19/17 14:33 Urine Blood Sm (Negative) 05/19/17 14:33 Urine Nitrite Neg (Negative) 05/19/17 14:33 Urine Bilirubin Neg (Negative) 05/19/17 14:33 Urine Urobilinogen < 2.0 mg/dL (<2.0) 05/19/17 14:33 Ur Leukocyte Esterase Neg (Negative) 05/19/17 14:33 Urine WBC (Auto) 1.0 /HPF (0.0-6.0) 05/19/17 14:33 Urine RBC (Auto) 1.0 /HPF (0.0-6.0) 05/19/17 14:33 <BILLY SHEPARD - Last Filed: 05/20/17 18:50> Assessment and Plan Assessment and plan: I saw and evaluated the patient. I agree with the findings and the plan of care as documented in the Nurse Practitioner's~note, with the following corrections and additions. Blood pressures remain elevated, continue current antihypertensives, when necessary hydralazine Medical records review, I believe that the above documentation and treatment plan Plan of care discussed with the patient and family members at the bedside Hospitalist Physical - Constitutional Vitals: Temp Pulse Resp BP Pulse Ox 98.0 F 90 18 180/92 95 05/20/17 16:00 05/20/17 16:00 05/20/17 16:00 05/20/17 16:00 05/20/17 08:23 Results - Labs CBC & Chem 7: 05/20/17 04:58 05/20/17 04:58 Labs: Laboratory Last Values WBC 4.7 K/mm3 (4.5-11.0) 05/20/17 04:58 RBC 3.23 M/mm3 (3.65-5.03) L 05/20/17 04:58 Hgb 10.4 gm/dl (10.1-14.3) 05/20/17 04:58 Hct 32.2 % (30.3-42.9) 05/20/17 04:58 MCV 100 fl (79-97) H 05/20/17 04:58 MCH 32 pg (28-32) 05/20/17 04:58 MCHC 32 % (30-34) 05/20/17 04:58 RDW 16.2 % (13.2-15.2) H 05/20/17 04:58 Plt Count 180 K/mm3 (140-440) 05/20/17 04:58 Lymph % (Auto) 30.5 % (13.4-35.0) 05/20/17 04:58 [place] % (Auto) 7.9 % (0.0-7.3) H 05/20/17 04:58 Eos % (Auto) 3.5 % (0.0-4.3) 05/20/17 04:58 Baso % (Auto) 0.8 % (0.0-1.8) 05/20/17 04:58 Lymph # 1.4 K/mm3 (1.2-5.4) 05/20/17 04:58 [place] # 0.4 K/mm3 (0.0-0.8) 05/20/17 04:58 Eos # 0.2 K/mm3 (0.0-0.4) 05/20/17 04:58 Baso # 0.0 K/mm3 (0.0-0.1) 05/20/17 04:58 Seg Neutrophils % 57.3 % (40.0-70.0) 05/20/17 04:58 Seg Neutrophils # 2.7 K/mm3 (1.8-7.7) 05/20/17 04:58 Sodium 144 mmol/L (137-145) 05/20/17 04:58 Potassium 4.9 mmol/L (3.6-5.0) 05/20/17 04:58 Chloride 103.9 mmol/L (98-107) 05/20/17 04:58 Carbon Dioxide 22 mmol/L (22-30) 05/20/17 04:58 Anion Gap 23 mmol/L 05/20/17 04:58 BUN 53 mg/dL (7-17) H 05/20/17 04:58 Creatinine 8.9 mg/dL (0.7-1.2) H 05/20/17 04:58 Estimated GFR 6 ml/min 05/20/17 04:58 BUN/Creatinine Ratio 6 % 05/20/17 04:58 Glucose 110 mg/dL (65-100) H 05/20/17 04:58 POC Glucose 120 (70-105) H 05/20/17 02:03 Calcium 9.2 mg/dL (8.4-10.2) 05/20/17 04:58 Total Bilirubin 0.60 mg/dL (0.1-1.2) 05/19/17 02:57 AST 14 units/L (5-40) 05/19/17 02:57 ALT 18 units/L (7-56) 05/19/17 02:57 Alkaline Phosphatase 81 units/L (35-129) 05/19/17 02:57 Total Protein 6.8 g/dL (6.3-8.2) 05/19/17 02:57 Albumin 4.3 g/dL (3.9-5) 05/19/17 02:57 Albumin/Globulin Ratio 1.7 % 05/19/17 02:57 Lipase 113 units/L (13-60) H 05/19/17 02:57 Urine Color Yellow (Yellow) 05/19/17 14:33 Urine Turbidity Clear (Clear) 05/19/17 14:33 Urine pH 8.0 (5.0-7.0) H 05/19/17 14:33 Ur Specific [place] 1.011 (1.003-1.030) 05/19/17 14:33 Urine Protein 100 mg/dl mg/dL (Negative) 05/19/17 14:33 Urine Glucose (UA) 150 mg/dL (Negative) 05/19/17 14:33 Urine Ketones Neg mg/dL (Negative) 05/19/17 14:33 Urine Blood Sm (Negative) 05/19/17 14:33 Urine Nitrite Neg (Negative) 05/19/17 14:33 Urine Bilirubin Neg (Negative) 05/19/17 14:33 Urine Urobilinogen < 2.0 mg/dL (<2.0) 05/19/17 14:33 Ur Leukocyte Esterase Neg (Negative) 05/19/17 14:33 Urine WBC (Auto) 1.0 /HPF (0.0-6.0) 05/19/17 14:33 Urine RBC (Auto) 1.0 /HPF (0.0-6.0) 05/19/17 14:33
[2017-05-20] MEDS: VITAMIN D3 PO SCH (09:50)
[2017-05-20] MEDS: NORVASC PO SCH (09:51)
[2017-05-20] MEDS: ALDOMET PO SCH (09:51)
[2017-05-20] MEDS: LOVENOX SUB-Q SCH (09:52)
--- NOTE | 2017-05-20 13:49 | Consultation ---
History of Present Illness - Reason for Consult Consult date: 05/20/17 end stage renal disease Requesting physician: BILLY SHEPARD - History of Present Illness 31-year-old female with a history of hypertension, diabetes, end-stage renal disease on dialysis was sent from dialysis to the ER day before yesterday after dialysis for blood pressure control. Patient was discharged home and return yesterday because of persistent nausea and vomiting, unable to tolerate oral intake. Also complaining of left lower abdominal pain which she described as sharp pain, intermittent in nature, unable to say along the last 4, intensity 5/ 10, no radiation cannot identify exacerbating or relieving factors. [place] [facility] [place] She is currently undergoing dialysis. Tolerating well. Denies any shortness of breath. Past History Past Medical History: diabetes, ESRD, hypertension Past Surgical History: Other (history creation of AV fistula) Social history: no significant social history Family history: no significant family history Medications and Allergies Allergies Allergy/AdvReac Type Severity Reaction Status Date / Time No Known Allergies Allergy Verified 12/15/16 10:43 Home Medications Medication Instructions Recorded Confirmed Last Taken Type Cholecalciferol (Vitamin D3) 2,000 unit PO DAILY 12/16/16 05/19/17 05/18/17 History [Vitamin D3 2,000 unit] Labetalol HCl 300 mg PO BID 05/19/17 05/19/17 05/18/17 History Losartan Potassium [Cozaar] 50 mg PO BID 05/19/17 05/19/17 05/18/17 History Methyldopa [Aldomet] 500 mg PO DAILY 05/19/17 05/19/17 05/18/17 History amLODIPine [Norvasc] 10 mg PO DAILY 05/19/17 05/19/17 05/18/17 History Active Meds: Active Medications Acetaminophen (Tylenol) 650 mg PO Q4H PRN PRN Reason: Pain MILD(1-3)/Fever >100.5/BARAJAS Amlodipine Besylate (Norvasc) 10 mg PO DAILY [facility] Last Admin: 05/20/17 09:51 Dose: 10 mg Bisacodyl (Dulcolax) 10 mg [place] QDAY PRN PRN Reason: Constipation unrelieved by MOM Cholecalciferol (Vitamin D3) 2,000 unit PO DAILY [facility] Last Admin: 05/20/17 09:50 Dose: 2,000 unit Enoxaparin Sodium (Lovenox) 30 mg SUB-Q QDAY [facility] Last Admin: 05/20/17 09:52 Dose: 30 mg Hydralazine HCl (Apresoline) 10 mg IV Q6H PRN PRN Reason: Hypertension Last Admin: 05/20/17 01:17 Dose: 10 mg Sodium Chloride (Nacl 0.9%) 100 mls @ 999 mls/hr IV BEE PRN PRN Reason: Hypotension Labetalol HCl (Normodyne) 300 mg PO BID [facility] Methyldopa (Aldomet) 500 mg PO DAILY [facility] Last Admin: 05/20/17 09:51 Dose: 500 mg Metoclopramide HCl (Reglan) 5 mg IV Q6H PRN PRN Reason: Nausea And Vomiting Last Admin: 05/20/17 02:59 Dose: 5 mg Morphine Sulfate (Morphine) 2 mg IV Q4H PRN PRN Reason: Pain, Moderate (4-6) Last Admin: 05/20/17 02:59 Dose: 2 mg Ondansetron HCl (Zofran) 4 mg IV Q8H PRN PRN Reason: N/V unrelieved by Reglan Last Admin: 05/20/17 01:25 Dose: 4 mg Review of Systems All systems: negative (negative except as noted above) Exam - Vital Signs Vital signs: Vital Signs Pulse BP Pulse Ox 79 134/77 98 05/19/17 01:43 05/19/17 01:43 05/19/17 01:43 - General Appearance General appearance: well-developed, well-nourished, appears stated age EENT: PERRL, mucous membranes moist Neck: Present: neck supple, trachea midline. Absent: JVD/HJR, Masses Respiratory: Clear to Ascultation Heart: regular, normal heart rate, S1S2, no murmurs Gastrointestinal: Present: normal, normoactive bowel sounds Integumentary: no rash, other (AV fistula in her right upper arm. Cannulated for dialysis.) Results - Lab Results 05/20/17 04:58 05/20/17 04:58 Most recent lab results Calcium 9.2 mg/dL (8.4-10.2) 05/20/17 04:58 Assessment and Plan Impression * End-stage renal disease on maintenance hemodialysis * Uncontrolled hypertension * nausea and vomiting * Diabetes * Anemia secondary to ESRD Recommendations * Patient is currently undergoing hemodialysis. Tolerating well. * Continue dialysis on Mondays, Wednesdays and Fridays schedule * Shall attempt to remove additional fluid with dialysis today. * If blood pressure remains elevated after dialysis, would adjust her antihypertensive meds * Procrit with dialysis * Binders with diet * No IV, BP or venipuncture in her access arm * Adjust diet and meds for ESRD state * Thank you very much for the consultation. She'll follow along with you
[2017-05-20] MEDS ORDERED: NACL 0.9 (PRIMING MACHINE ONLY DIALYSIS) MC ONE (18:07)
[2017-05-20] MEDS: NORMODYNE PO SCH ×2 (18:47→23:33)
[2017-05-20] MEDS: TYLENOL PO PRN (20:18)
[2017-05-20] MEDS: APRESOLINE PO SCH (23:33)
[2017-05-21] MEDS: APRESOLINE PO SCH ×2 (05:24→13:26)
[2017-05-21 06:15] LABS: Calcium 8.7 mg/dL (8.4-10.2); Chloride 100.3 mmol/L (98-107)
[2017-05-21 06:16] LABS: Basophils % (Auto) 0.9 % (0.0-1.8); Eosinophils % (Auto) 4.3 % (0.0-4.3); Hematocrit 32.4 % (30.3-42.9); Hemoglobin 10.6 gm/dl (10.1-14.3); Mean Corpuscular HGB Conc 33 % (30-34); Mean Corpuscular Hemoglobin 33 pg (28-32); Mean Corpuscular Volume 100 fl (79-97); Platelet Count 182 K/mm3 (140-440); Red Blood Count 3.25 M/mm3 (3.65-5.03); Red Cell Distribution Width 16.2 % (13.2-15.2); White Blood Count 4.9 K/mm3 (4.5-11.0)
[2017-05-21] MEDS: NORMODYNE PO SCH (09:12)
[2017-05-21] MEDS: VITAMIN D3 PO SCH (09:12)
[2017-05-21] MEDS: ALDOMET PO SCH (09:12)
[2017-05-21] MEDS: TYLENOL PO PRN (09:12)
[2017-05-21] MEDS: NORVASC PO SCH (09:13)
[2017-05-21] MEDS: LOVENOX SUB-Q SCH (09:13)
--- NOTE | 2017-05-21 13:39 | Progress Note ---
Assessment and Plan Impression * End-stage renal disease on maintenance hemodialysis * Uncontrolled hypertension * nausea and vomiting * Diabetes * Anemia secondary to ESRD Recommendations * Uneventful hemodialysis yesterday . * Continue dialysis on Mondays, Wednesdays and Fridays schedule * Her blood pressure seems to be better today * Procrit with dialysis * Binders with diet * No IV, BP or venipuncture in her access arm * Adjust diet and meds for ESRD state * No objection to discharge from renal standpoint Subjective Date of service: 05/21/17 Interval history: Patient is comfortable today. Denies any shortness of breath. No further nausea or vomiting. Objective - Vital Signs Vital signs: Vital Signs - 12hr 05/21/17 05/21/17 05/21/17 05:04 05:24 08:36 Temperature 98.2 F Pulse Rate 78 83 83 Respiratory 18 Rate Blood Pressure 156/77 153/83 O2 Sat by Pulse 96 Oximetry 05/21/17 05/21/17 05/21/17 08:43 09:12 09:13 Temperature 98.3 F Pulse Rate 82 83 83 Respiratory 18 Rate Blood Pressure 149/72 152/83 152/83 O2 Sat by Pulse 97 Oximetry 05/21/17 05/21/17 12:20 13:26 Temperature 99.0 F Pulse Rate 81 103 H Respiratory 20 Rate Blood Pressure 177/87 150/80 O2 Sat by Pulse 98 Oximetry - General Appearance General appearance: well-developed, well-nourished, appears stated age EENT: PERRL, mucous membranes moist Neck: no JVD, no thyromegaly, no carotid bruit, supple Respiratory: Present: Clear to Ascultation Cardiology: regular, normal heart rate, S1S2, no murmurs Gastrointestinal: normal, normoactive bowel sounds Integumentary: no rash, other (AVF in her upper arm. Good bruit and thrill) - Lab 05/21/17 04:50 05/21/17 04:50 Most recent lab results Calcium 8.7 mg/dL (8.4-10.2) 05/21/17 04:50
--- NOTE | 2017-05-21 17:32 | Discharge Summary ---
Providers - Providers Date of Admission: 05/19/17 23:19 Attending physician: GAVI MEDINA 05/19/17 17:19 Consult to Physician [CONS] Urgent Consulting Provider: LANIE CHURCHILL Reason For Exam: esrd Place consult to:: Dr. Churchill..Dr. Villtaoro Notified:: Answering Service Phone number called:: [phone] Was contact made?: Yes If yes, spoke with:: Dr. Villatoro Time called:: 17:54 Comment:: Dr. Quigley (er dr) spoke with Dr. Villatoro Primary care physician: ASSISTANT PROFESSOR [employer] Hospitalization Condition: Good Disposition: DC-30 STILL A PATIENT Exam - Constitutional Vitals: Temp Pulse Resp BP Pulse Ox 99.0 F 103 H 20 150/80 98 05/21/17 12:20 05/21/17 13:26 05/21/17 12:20 05/21/17 13:26 05/21/17 12:20 Plan Follow up with: PRIMARY CAREMD [Primary Care Provider] - 3-5 Days
[2017-05-21 20:12] VITALS: BP 149/73
== END 2017-05-21 18:30 | disposition home or self-care (01) | DRG 304 ==
LOC: ED 00:24 → 4A 23:19
PROVIDERS: ADMIT Internal Medicine; ATTEND Internal Medicine
PROC: 5A1D70Z Performance of Urinary Filtration, Intermittent, Less than 6 Hours Per Day (ICD-10-PCS; principal; 2017-05-20)
DX: I16.0 Hypertensive urgency (principal); N18.6 End stage renal disease; E87.5 Hyperkalemia; E11.22 Type 2 diabetes mellitus with diabetic chronic kidney disease; Z99.2 Dependence on renal dialysis; I12.0 Hypertensive chronic kidney disease with stage 5 chronic kidney disease or end stage renal disease; Z82.49 Family history of ischemic heart disease and other diseases of the circulatory system; D63.1 Anemia in chronic kidney disease
CPT/HCPCS: 36415; 70450; 74176; 80048; 80053; 81001; 81025; 82962; 83690; 84484; 84703; 85025; 93005; 93010; 96374; 96376; J0360; J1170; J1650; J1815; J2270; J2405; J2765; J7030

== ENCOUNTER 2018-09-07 05:28 | Emergency (ER) | payer MEDICARE ==
[2018-09-07] MEDS ORDERED: NORCO 5/325 PO ONE (05:49)
[2018-09-07] MEDS ORDERED: NORCO 5/325 ONE (05:53)
--- NOTE | 2018-09-07 06:25 | XRay Report ---
PROCEDURE: XR SPINE LUMBOSACRAL 2-3V TECHNIQUE: 3 views of the lumbar spine HISTORY: fall COMPARISONS: None FINDINGS: Mild rightward convexity of the lumbar spine centered around L3 and may be positional. Lumbar lordosi s is intact. Vertebral body heights and intervertebral disc spaces are preserved. No listhesis, spo ndylolysis or other fracture. A q.d. is present in the pelvis. IMPRESSION: No acute lumbar spine finding. This document is electronically signed by Oscar Singh MD., September 07 2018 06:24:17 AM ET
[2018-09-07 06:39] VITALS: BP 176/95
[2018-09-07] MEDS ORDERED: FLEXERIL PO ONE (08:07)
--- NOTE | 2018-09-07 08:08 | Emergency Department Report ---
ED Back Pain/Injury HPI - General Chief Complaint: Back Pain/Injury Stated Complaint: SLIP IN FALL AT HOME Time Seen by Provider: 09/07/18 08:02 Source: patient Limitations: No Limitations - History of Present Illness Initial Comments: 32 YO COMES TO ER SP GLF DUE TO A WET FLOOR. CO LOW BACK PAIN. NO LOC WITH FALL. AMBULATORY. NO DYSURIA. NO SADDLE ANESTHESIA. PMH HTN ESRD ON HD- DUE TODAY Complaint: back pain Similar Symptoms Previously: No Place: work Improves With: immobilization Worsens With: movement Associated Symptoms: denies other symptoms - Related Data Home Medications Medication Instructions Recorded Confirmed Last Taken Labetalol HCl 300 mg PO BID 05/19/17 05/19/17 05/18/17 Losartan Potassium [Cozaar] 50 mg PO BID 05/19/17 05/19/17 05/18/17 Methyldopa [Aldomet] 500 mg PO DAILY 05/19/17 05/19/17 05/18/17 Previous Rx's Medication Instructions Recorded Last Taken Type Cholecalciferol Vit D3 [Vitamin D3 2,000 unit PO DAILY tablet 05/21/17 Unknown Rx 1,000 UNIT TAB] Labetalol [Normodyne TAB] 300 mg PO BID tablet 05/21/17 Unknown Rx Methyldopa [Aldomet] 500 mg PO DAILY tablet 05/21/17 Unknown Rx amLODIPine [Norvasc] 10 mg PO DAILY tablet 05/21/17 Unknown Rx hydrALAZINE [Apresoline TAB] 25 mg PO Q8HR #90 tablet 05/21/17 Unknown Rx Cyclobenzaprine [Flexeril] 10 mg PO TID PRN #10 tablet 09/07/18 Unknown Rx Allergies Allergy/AdvReac Type Severity Reaction Status Date / Time No Known Allergies Allergy Verified 12/15/16 10:43 ED Review of Systems ROS: Stated complaint: SLIP IN FALL AT HOME Other details as noted in HPI Comment: All other systems reviewed and negative ED Past Medical Hx - Past Medical History Medical history: ESRD, hypertension Family history: no significant family history ED Back Pain Physical Exam - Exam General: Vital signs noted. No distress. Alert and acting appropriately. Back/Abdomen: No Abdominal Tenderness, No Perithoracic Tenderness, No Perilumbar Tenderness, No Sacroiliac Tenderness, No Flank Tenderness, No Straight Leg Raise Pain Neuro: Yes Normal Sensation, Yes Normal DTR's, Yes Normal Gait, No Motor Weakness ED Course Vital Signs 09/07/18 09/07/18 09/07/18 05:33 05:34 05:52 Temperature 97.9 F 97.9 F Pulse Rate 75 77 Respiratory 18 18 18 Rate Blood Pressure 210/97 210/97 Blood Pressure [Left] O2 Sat by Pulse 95 95 Oximetry 09/07/18 06:39 Temperature Pulse Rate 72 Respiratory 16 Rate Blood Pressure Blood Pressure 176/95 [Left] O2 Sat by Pulse Oximetry - Reevaluation(s) Reevaluation #1: HOME MEDS BP MEDS AND RENAL VITS Ed Back Pain Tests - Tests Tests: Normal UA ED Medical Decision Making - Radiology Data Radiology results: report reviewed, image reviewed - Medical Decision Making MEDICATED FOR PAIN XRAY NEG DC HOME WITH DC PLAN OF CARE AND FOLLOW UP Vital Signs 09/07/18 09/07/18 09/07/18 05:33 05:34 05:52 Temperature 97.9 F 97.9 F Pulse Rate 75 77 Respiratory 18 18 18 Rate Blood Pressure 210/97 210/97 Blood Pressure [Left] O2 Sat by Pulse 95 95 Oximetry 09/07/18 06:39 Temperature Pulse Rate 72 Respiratory 16 Rate Blood Pressure Blood Pressure 176/95 [Left] O2 Sat by Pulse Oximetry Critical care attestation.: If time is entered above; I have spent that time in minutes in the direct care of this critically ill patient, excluding procedure time. ED Disposition Clinical Impression: Contusion, Fall from ground level, Lumbar back pain Disposition: DC-01 TO HOME OR SELFCARE Is pt being admited?: No Does the pt Need Aspirin: No Condition: Stable Instructions: Back Pain (ED) Additional Instructions: HYDRATE WELL WITH WATER MEDS ORDERED DIET TOLERATED FOLLOW UP PCP REFERRAL BELOW WARM COMPRESSES Prescriptions: Cyclobenzaprine [Flexeril] 10 mg PO TID PRN #10 tablet PRN Reason: Muscle Spasm Referrals: CATRINA BAE MD [Primary Care Provider] - 3-5 Days Time of Disposition: 08:22
== END 2018-09-07 08:29 | disposition home or self-care (01) ==
LOC: ED 05:28
DX: S30.0XXA Contusion of lower back and pelvis, initial encounter (principal); I12.0 Hypertensive chronic kidney disease with stage 5 chronic kidney disease or end stage renal disease; N18.6 End stage renal disease; W01.0XXA Fall on same level from slipping, tripping and stumbling without subsequent striking against object, initial encounter; Y93.89 Activity, other specified; Y92.098 Other place in other non-institutional residence as the place of occurrence of the external cause; Y99.8 Other external cause status
CPT/HCPCS: 72100; 99283

== ENCOUNTER 2018-09-08 16:26 | Emergency (ER) | payer MEDICARE ==
[2018-09-08 16:34] VITALS: BP 139/61
--- NOTE | 2018-09-08 16:38 | Emergency Department Report ---
Blank Doc - Documentation Documentation: This is a 32-year-old female that present siwth lower back pain s/p fall. This initial assessment/diagnostic orders/clinical plan/treatment(s) is/are subject to change based on patient's health status, clinical progression and re- assessment by fellow clinical providers in the ED. Further treatment and workup at subsequent clinical providers discretion. Patient/guardians urged not to elope from the ED as their condition may be serious if not clinically assessed and managed. Initial orders include: 1- Patient sent to [facility] for further evaluation and treatment 2- xray
--- NOTE | 2018-09-08 18:06 | Emergency Department Report ---
ED General Adult HPI - General Chief complaint: Fall Stated complaint: FALLEN/BACK PAIN Time Seen by Provider: 09/08/18 16:36 Source: patient Mode of arrival: Ambulatory Limitations: No Limitations - History of Present Illness Initial comments: 32-year-old [place] female to emergency Department complaining of continued back pain since her fall yesterday. Unfortunately slip and fall. She was seen and evaluated at this hospital was treated with Flexeril. X-rays were normal and she was advised to follow with primary care provider which she has not yet had time to do. She reports no saddle paresthesia, no incontinence, no urinary retention, no ambulatory with weakness no coordination issues. States she is been urinating normally and having normal bowel movements. Thanks. She has sensation that her back is swollen but denies any further injury since her initial fall yesterday -: Gradual Radiation: non-radiation Severity scale (0 -10): 10 Quality: dull Consistency: constant Improves with: none Worsens with: none Associated Symptoms: denies other symptoms. denies: chest pain, diaphoresis, fever/chills, loss of appetite, malaise, nausea/vomiting, shortness of breath, syncope, weakness Treatments Prior to Arrival: none - Related Data Home Medications Medication Instructions Recorded Confirmed Last Taken Labetalol HCl 300 mg PO BID 05/19/17 05/19/17 05/18/17 Losartan Potassium [Cozaar] 50 mg PO BID 05/19/17 05/19/17 05/18/17 Methyldopa [Aldomet] 500 mg PO DAILY 05/19/17 05/19/17 05/18/17 Previous Rx's Medication Instructions Recorded Last Taken Type Cholecalciferol Vit D3 [Vitamin D3 2,000 unit PO DAILY tablet 05/21/17 Unknown Rx 1,000 UNIT TAB] Labetalol [Normodyne TAB] 300 mg PO BID tablet 05/21/17 Unknown Rx Methyldopa [Aldomet] 500 mg PO DAILY tablet 05/21/17 Unknown Rx amLODIPine [Norvasc] 10 mg PO DAILY tablet 05/21/17 Unknown Rx hydrALAZINE [Apresoline TAB] 25 mg PO Q8HR #90 tablet 05/21/17 Unknown Rx Cyclobenzaprine [Flexeril] 10 mg PO TID PRN #10 tablet 09/07/18 Unknown Rx Allergies Allergy/AdvReac Type Severity Reaction Status Date / Time No Known Allergies Allergy Verified 09/08/18 16:32 ED Review of Systems ROS: Stated complaint: FALLEN/BACK PAIN Other details as noted in HPI Constitutional: denies: chills, fever Eyes: denies: eye pain, eye discharge, vision change ENT: denies: ear pain, throat pain Respiratory: denies: cough, shortness of breath, wheezing Cardiovascular: denies: chest pain, palpitations Endocrine: no symptoms reported. denies: flushing, intolerance to cold Gastrointestinal: denies: abdominal pain, nausea, diarrhea Genitourinary: denies: urgency, dysuria, discharge Musculoskeletal: denies: back pain, joint swelling, arthralgia Skin: denies: rash, lesions Neurological: denies: headache, weakness, paresthesias Psychiatric: denies: anxiety, depression Hematological/Lymphatic: denies: easy bleeding, easy bruising ED Past Medical Hx - Past Medical History Hx Hypertension: Yes Hx Congestive Heart Failure: No Hx Diabetes: Yes Hx Renal Disease: Yes (MW) Hx Asthma: No Hx COPD: No - Surgical History Additional Surgical History: Fistula to right arm. vas cath to right chest. - Social History Smoking Status: Never Smoker Substance Use Type: None - Medications Home Medications: Home Medications Medication Instructions Recorded Confirmed Last Taken Type Labetalol HCl 300 mg PO BID 05/19/17 05/19/17 05/18/17 History Losartan Potassium [Cozaar] 50 mg PO BID 05/19/17 05/19/17 05/18/17 History Methyldopa [Aldomet] 500 mg PO DAILY 05/19/17 05/19/17 05/18/17 History Cholecalciferol Vit D3 [Vitamin D3 2,000 unit PO DAILY tablet 05/21/17 Unknown Rx 1,000 UNIT TAB] Labetalol [Normodyne TAB] 300 mg PO BID tablet 05/21/17 Unknown Rx Methyldopa [Aldomet] 500 mg PO DAILY tablet 05/21/17 Unknown Rx amLODIPine [Norvasc] 10 mg PO DAILY tablet 05/21/17 Unknown Rx hydrALAZINE [Apresoline TAB] 25 mg PO Q8HR #90 tablet 05/21/17 Unknown Rx Cyclobenzaprine [Flexeril] 10 mg PO TID PRN #10 tablet 09/07/18 Unknown Rx ED Physical Exam - General Limitations: No Limitations General appearance: alert, in no apparent distress - Head Head exam: Present: atraumatic, normocephalic - Eye Eye exam: Present: normal appearance, PERRL Pupils: Present: normal accommodation - ENT ENT exam: Present: normal exam, normal orophraynx, mucous membranes moist, TM's normal bilaterally - Neck Neck exam: Present: normal inspection, full ROM - Respiratory Respiratory exam: Present: normal lung sounds bilaterally. Absent: respiratory distress - Cardiovascular Cardiovascular Exam: Present: regular rate, normal rhythm. Absent: systolic murmur, diastolic murmur, rubs, gallop - GI/Abdominal GI/Abdominal exam: Present: soft, normal bowel sounds - Extremities Exam Extremities exam: Present: normal inspection - Back Exam Back exam: Present: normal inspection, full ROM. Absent: tenderness, muscle spasm, paraspinal tenderness, vertebral tenderness - Neurological Exam Neurological exam: Present: alert, oriented X3, CN II-XII intact, normal gait - Psychiatric Psychiatric exam: Present: normal affect, normal mood - Skin Skin exam: Present: warm, dry, intact, normal color. Absent: rash ED Course Vital Signs 09/08/18 16:32 Temperature 98.3 F Pulse Rate 78 Respiratory 18 Rate Blood Pressure 139/61 O2 Sat by Pulse 94 Oximetry Critical care attestation.: If time is entered above; I have spent that time in minutes in the direct care of this critically ill patient, excluding procedure time. ED Disposition Clinical Impression: Lower back pain Disposition: DC-01 TO HOME OR SELFCARE Is pt being admited?: No Does the pt Need Aspirin: No Condition: Stable Instructions: Acute Low Back Pain (ED) Referrals: [facility] [Provider Group] - 3-5 Days
[2018-09-08] MEDS ORDERED: ULTRAM PO STA (18:10)
== END 2018-09-08 18:46 | disposition home or self-care (01) ==
LOC: ED 16:26
DX: M54.5 Low back pain (principal); I10 Essential (primary) hypertension; E11.9 Type 2 diabetes mellitus without complications
CPT/HCPCS: 99282

== ENCOUNTER 2018-09-30 07:29 | Outpatient (CLI) | payer MEDICARE ==
--- NOTE | 2018-10-05 08:07 | Nuclear Medicine Report ---
NUCLEAR MEDICINE GASTRIC EMPTYING SCAN: 09/30/18 08:00:00 CLINICAL: Epigastric pain. TECHNIQUE: 1.0 mCi of technetium 99m-sulfur colloid labeled oatmeal was administered as a meal. Counts were obtained for 45 minutes. FINDINGS: 88% emptying at 45 minutes. T1/2 = 16 minutes . IMPRESSION: Normal study.
== END 2018-09-30 07:30 | disposition home or self-care (01) ==
LOC: NM 07:29
PROVIDERS: ATTEND Surgery
DX: R10.13 Epigastric pain (principal); E66.9 Obesity, unspecified; E11.9 Type 2 diabetes mellitus without complications; I11.0 Hypertensive heart disease with heart failure; I50.9 Heart failure, unspecified
CPT/HCPCS: 78264; A9541

== ENCOUNTER 2018-10-31 16:02 | Emergency (ER) | payer MEDICARE ==
--- NOTE | 2018-10-31 16:12 | Emergency Department Report ---
Blank Doc - Documentation Documentation: 32 y o female presents with dysuria x today denies f/c/n/v/c/ vag d/c ua ordered acc chet
[2018-10-31 18:54] LABS: Bacteria,Urine 3+ /HPF (Negative); Bilirubin,Urine NEG (Negative); Blood,Urine MOD (Negative); Color,Urine Yellow (Yellow); HCG Qualitative,Urine Negative (Negative); Urobilinogen,Urine < 2.0 mg/dL (<2.0)
[2018-10-31 18:55] LABS: Protein,Urine >500 mg/dL (Negative); RBC,Urine > 182.0 /HPF (0.0-6.0); WBC,Urine > 182.0 /HPF (0.0-6.0)
[2018-10-31] MEDS ORDERED: XYLOCAINE 1% MPF 5 mL INFILTRATI ONE (19:18)
[2018-10-31] MEDS ORDERED: ROCEPHIN IM ONE (19:18)
--- NOTE | 2018-10-31 19:19 | Emergency Department Report ---
ED Dysuria HPI - HPI Chief Complaint: Urogenital-Female Stated Complaint: UTI Time Seen by Provider: 10/31/18 16:08 Duration: 1 Day Location of Discomfort: Urethra (dysuria) Severity: Mild Symptoms: Dysuria: Yes, Frequency: No, Suprapubic Pain: No, Flank Pain: No, Fever: No, Hematuria: No, Abdominal Pain: No, Previous UTI's: Yes Other History: pt is a 32-year-old female that comes in with dysuria. She does have end-stage kidney disease and is on HD but states that she does make urine and it gets these from time to time. She is not concerned her nor STD. ED Review of Systems ROS: Stated complaint: UTI Other details as noted in HPI Comment: All other systems reviewed and negative ED Past Medical Hx - Past Medical History Hx Hypertension: Yes Hx Congestive Heart Failure: No Hx Diabetes: Yes Hx Renal Disease: Yes (MW) Hx Asthma: No Hx COPD: No - Surgical History Additional Surgical History: Fistula to right arm. vas cath to right chest. - Social History Smoking Status: Never Smoker Substance Use Type: None - Medications Home Medications: Home Medications Medication Instructions Recorded Confirmed Last Taken Type Labetalol HCl 300 mg PO BID 05/19/17 05/19/17 05/18/17 History Losartan Potassium [Cozaar] 50 mg PO BID 05/19/17 05/19/17 05/18/17 History Methyldopa [Aldomet] 500 mg PO DAILY 05/19/17 05/19/17 05/18/17 History Cholecalciferol Vit D3 [Vitamin D3 2,000 unit PO DAILY tablet 05/21/17 Unknown Rx 1,000 UNIT TAB] Labetalol [Labetalol 100mg TAB] 300 mg PO BID tablet 05/21/17 Unknown Rx Methyldopa [Aldomet] 500 mg PO DAILY tablet 05/21/17 Unknown Rx amLODIPine [Norvasc] 10 mg PO DAILY tablet 05/21/17 Unknown Rx hydrALAZINE [Apresoline TAB] 25 mg PO Q8HR #90 tablet 05/21/17 Unknown Rx Cyclobenzaprine [Flexeril] 10 mg PO TID PRN #10 tablet 09/07/18 Unknown Rx Sulfamethoxazole/Trimethoprim 1 each PO BID #6 tablet 10/31/18 Unknown Rx [Bactrim DS TAB] Dysuria Exam - Exam General: Vital signs noted. No distress. Alert and acting appropriately. Exam: Yes Moist Mucous Membranes, No CVA Tenderness, No Abdominal Tenderness, No Rigidity or Guarding Labs: Lab Results 10/31/18 Range/Units 18:40 Urine Color Yellow (Yellow) Urine Turbidity Turbid (Clear) Urine pH 7.0 (5.0-7.0) Ur Specific [place] 1.014 (1.003-1.030) Urine Protein >500 (Negative) mg/dL Urine Glucose (UA) Neg (Negative) mg/dL Urine Ketones Neg (Negative) mg/dL Urine Blood Mod (Negative) Urine Nitrite Neg (Negative) Urine Bilirubin Neg (Negative) Urine Urobilinogen < 2.0 (<2.0) mg/dL Ur Leukocyte Esterase Mod (Negative) Urine WBC (Auto) > 182.0 H (0.0-6.0) /HPF Urine RBC (Auto) > 182.0 (0.0-6.0) /HPF U Epithel Cells (Auto) 8.0 (0-13.0) /HPF Urine Bacteria (Auto) 3+ (Negative) /HPF Urine WBC Clumps 3+ /HPF Urine HCG, Qual Negative (Negative) ED Course Vital Signs 10/31/18 16:05 Temperature 98.7 F Pulse Rate 75 Respiratory 20 Rate Blood Pressure 153/72 ED Medical Decision Making - Medical Decision Making Lab Results 10/31/18 Range/Units 18:40 Urine Color Yellow (Yellow) Urine Turbidity Turbid (Clear) Urine pH 7.0 (5.0-7.0) Ur Specific [place] 1.014 (1.003-1.030) Urine Protein >500 (Negative) mg/dL Urine Glucose (UA) Neg (Negative) mg/dL Urine Ketones Neg (Negative) mg/dL Urine Blood Mod (Negative) Urine Nitrite Neg (Negative) Urine Bilirubin Neg (Negative) Urine Urobilinogen < 2.0 (<2.0) mg/dL Ur Leukocyte Esterase Mod (Negative) Urine WBC (Auto) > 182.0 H (0.0-6.0) /HPF Urine RBC (Auto) > 182.0 (0.0-6.0) /HPF U Epithel Cells (Auto) 8.0 (0-13.0) /HPF Urine Bacteria (Auto) 3+ (Negative) /HPF Urine WBC Clumps 3+ /HPF Urine HCG, Qual Negative (Negative) Vital Signs 10/31/18 16:05 Temperature 98.7 F Pulse Rate 75 Respiratory 20 Rate Blood Pressure 153/72 VSS no fever HD yesterday makes urine no cva tenderness no fever no chills dysuria x 1 day not concerned for STI Given CKD urine sent for culture- soda tester can call for results Rocephin IM X1 and Discharge home with discharge planning care. Critical care attestation.: If time is entered above; I have spent that time in minutes in the direct care of this critically ill patient, excluding procedure time. ED Disposition Clinical Impression: UTI (urinary tract infection), Insulin dependent diabetes mellitus, Renal failure Disposition: TO HOME OR SELFCARE Is pt being admited?: No Does the pt Need Aspirin: No Condition: Stable Instructions: Urinary Tract Infection in Women (ED) Additional Instructions: WE HAVE SENT YOUR URINE FOR CULTURE YOUR RENAL MD OR PCP SHOULD CALL IN 3 DAYS TO BE SURE THE ANTIBIOTICS ARE GOING TO TREAT THE INFECTION ALSO, WHEN YOU FINISH THE MED YOU SHOULD SEE YOUR RENAL MD FOR A URINE TEST TO BE SURE THIS INFECTION IS GONE MOTRIN OR TYLENOL FOR PAIN OR FEVER DIET TOLERATED MEDS ORDERED TODAY IN ER FOLLOW INSTRUCTIONS ON THE BOTTLE FOLLOW UP PCP WITHIN 48 HOURS TO ENSURE YOU ARE GETTING BETTER ACTIVITY TOLERATED MOTRIN OR TYLENOL FOR PAIN OR FEVER RETURN TO THE ER FOR WORSENING SYMPTOMS NOT RELIEVED BY YOUR MEDICATIONS. Prescriptions: Sulfamethoxazole/Trimethoprim [Bactrim DS TAB] 1 each PO BID #6 tablet Referrals: MEHDI STEELE MD [Primary Care Provider] - 3-5 Days Time of Disposition: 19:35
[2018-10-31 19:45] VITALS: BP 168/88
== END 2018-10-31 19:51 | disposition home or self-care (01) ==
LOC: ED 16:02
DX: N39.0 Urinary tract infection, site not specified (principal); I13.0 Hypertensive heart and chronic kidney disease with heart failure and stage 1 through stage 4 chronic kidney disease, or unspecified chronic kidney disease; E11.22 Type 2 diabetes mellitus with diabetic chronic kidney disease; N18.9 Chronic kidney disease, unspecified; Z99.2 Dependence on renal dialysis
CPT/HCPCS: 81001; 81025; 96372; 99283; J0696

== ENCOUNTER 2019-05-18 09:44 | Emergency (ER) | payer MEDICARE ==
[2019-05-18] MEDS ORDERED: hydrALAZINE 20 MG/1 ML INJ IV ONE (10:04)
--- NOTE | 2019-05-18 10:04 | Emergency Department Report ---
ED General Adult HPI - General Chief complaint: High BP Stated complaint: HTN Time Seen by Provider: 05/18/19 09:59 Source: patient, EMS Mode of arrival: Ambulatory Limitations: No Limitations - History of Present Illness Initial comments: Patient is a pleasant 33-year-old who comes to the emergency room from her dialysis clinic due to hypertension. She went on HD and her blood pressure was slightly elevated on admit and they gave her clonidine by mouth. Patient told them not to give her clonidine because clonidine actually raises her blood pressure. Within a couple hours while on dialysis patient became hypertensive so she was sent to the emergency room. Patient has no complaints. She has no chest pain or shortness of breath. She has no headache. She is neurovascularly intact. Patient states that she has been taking her home medications. She states that her primary care doctor Irving has to change her antihypertensives frequently. Past medical history Diabetes Hypertension End stage renal disease on hemodialysis Anemia Chronic viral hepatitis B Hyperparathyroidism due to kidney disease Current home medications. Iron Cardura Levemir vitamin D2 Lisinopril Fosrenal Hydralazine Procardia vitamin D3 -: Gradual Associated Symptoms: denies other symptoms Treatments Prior to Arrival: none - Related Data Home Medications Medication Instructions Recorded Confirmed Last Taken Labetalol HCl 300 mg PO BID 05/19/17 05/19/17 05/18/17 Losartan Potassium [Cozaar] 50 mg PO BID 05/19/17 05/19/17 05/18/17 Methyldopa [Aldomet] 500 mg PO DAILY 05/19/17 05/19/17 05/18/17 Previous Rx's Medication Instructions Recorded Last Taken Type Cholecalciferol Vit D3 [Vitamin D3 2,000 unit PO DAILY tablet 05/21/17 Unknown Rx 1,000 UNIT TAB] Methyldopa [Aldomet] 500 mg PO DAILY tablet 05/21/17 Unknown Rx amLODIPine 10 mg PO DAILY tablet 05/21/17 Unknown Rx hydrALAZINE [Apresoline TAB] 25 mg PO Q8HR #90 tablet 05/21/17 Unknown Rx labetaloL [Labetalol 100mg TAB] 300 mg PO BID tablet 05/21/17 Unknown Rx Cyclobenzaprine [Flexeril] 10 mg PO TID PRN #10 tablet 09/07/18 Unknown Rx Sulfamethoxazole/Trimethoprim 1 each PO BID #6 tablet 10/31/18 Unknown Rx [Bactrim DS TAB] Allergies Allergy/AdvReac Type Severity Reaction Status Date / Time No Known Allergies Allergy Verified 10/31/18 16:05 ED Review of Systems ROS: Stated complaint: HTN Other details as noted in HPI Comment: All other systems reviewed and negative ED Past Medical Hx - Past Medical History Previous Medical History?: Yes Hx Hypertension: Yes Hx CVA: No Hx Heart Attack/AMI: No Hx Congestive Heart Failure: No Hx Diabetes: Yes Hx Pulmonary Embolism: No Hx Liver Disease: No Hx Renal Disease: Yes (MWF) Hx of Cancer: No Hx Sickle Cell Disease: No Hx Arthritis: No Hx Headaches / Migraines: No Hx Seizures: No Hx Kidney Stones: No Hx Psychiatric Treatment: No Hx Asthma: No Hx COPD: No Additional medical history: hyperparathyroidism - Surgical History Past Surgical History?: Yes Additional Surgical History: Fistula to right arm. vas cath to right chest. - Social History Smoking Status: Never Smoker Substance Use Type: None - Medications Home Medications: Home Medications Medication Instructions Recorded Confirmed Last Taken Type Labetalol HCl 300 mg PO BID 05/19/17 05/19/17 05/18/17 History Losartan Potassium [Cozaar] 50 mg PO BID 05/19/17 05/19/17 05/18/17 History Methyldopa [Aldomet] 500 mg PO DAILY 05/19/17 05/19/17 05/18/17 History Cholecalciferol Vit D3 [Vitamin D3 2,000 unit PO DAILY tablet 05/21/17 Unknown Rx 1,000 UNIT TAB] Methyldopa [Aldomet] 500 mg PO DAILY tablet 05/21/17 Unknown Rx amLODIPine 10 mg PO DAILY tablet 05/21/17 Unknown Rx hydrALAZINE [Apresoline TAB] 25 mg PO Q8HR #90 tablet 05/21/17 Unknown Rx labetaloL [Labetalol 100mg TAB] 300 mg PO BID tablet 05/21/17 Unknown Rx Cyclobenzaprine [Flexeril] 10 mg PO TID PRN #10 tablet 09/07/18 Unknown Rx Sulfamethoxazole/Trimethoprim 1 each PO BID #6 tablet 10/31/18 Unknown Rx [Bactrim DS TAB] ED Physical Exam - General Limitations: No Limitations General appearance: alert, in no apparent distress - Head Head exam: Present: atraumatic, normocephalic - Eye Eye exam: Present: normal appearance - ENT ENT exam: Present: mucous membranes moist - Neck Neck exam: Present: normal inspection - Respiratory Respiratory exam: Present: normal lung sounds bilaterally. Absent: respiratory distress - Cardiovascular Cardiovascular Exam: Present: regular rate, normal rhythm. Absent: systolic murmur, diastolic murmur, rubs, gallop - GI/Abdominal GI/Abdominal exam: Present: soft, normal bowel sounds - Extremities Exam Extremities exam: Present: normal inspection - Back Exam Back exam: Present: normal inspection - Neurological Exam Neurological exam: Present: alert, oriented X3 - Psychiatric Psychiatric exam: Present: normal affect, normal mood - Skin Skin exam: Present: warm, dry, intact, normal color. Absent: rash ED Course Vital Signs 05/18/19 05/18/19 05/18/19 09:45 10:42 11:05 Temperature 98.1 F Pulse Rate 63 62 62 Respiratory 14 16 Rate Blood Pressure 235/107 233/105 Blood Pressure 187/83 [Left] O2 Sat by Pulse 98 97 Oximetry ED Medical Decision Making - Lab Data Result diagrams: 05/18/19 10:17 05/18/19 10:17 - Medical Decision Making Labs 05/18/19 05/18/19 10:17 10:17 WBC 3.0 L RBC 3.08 L Hgb 10.1 Hct 30.4 MCV 99 H MCH 33 H MCHC 33 RDW 15.3 H Plt Count 105 L Sodium 139 Potassium 3.4 L Chloride 95.6 L Carbon Dioxide 25 Anion Gap 22 BUN 21 H Creatinine 5.1 H Estimated GFR 12 BUN/Creatinine Ratio 4 Glucose 145 H Calcium 8.9 Vital Signs 05/18/19 05/18/19 05/18/19 09:45 10:42 11:05 Temperature 98.1 F Pulse Rate 63 62 62 Respiratory 14 16 Rate Blood Pressure 235/107 233/105 Blood Pressure 187/83 [Left] O2 Sat by Pulse 98 97 Oximetry hydral 20 mg IV x 1 labs noted K not replaced- pt just finished 2.5h HD run this AM dc home with pcp follow up for bp management. HD as planned. - Differential Diagnosis a/c htn Critical care attestation.: If time is entered above; I have spent that time in minutes in the direct care of this critically ill patient, excluding procedure time. ED Disposition Clinical Impression: HTN (hypertension), malignant Disposition: DC-01 TO HOME OR SELFCARE Is pt being admited?: No Does the pt Need Aspirin: No Condition: Stable Instructions: Hypertension (ED) Additional Instructions: continue home meds follow up with pcp Referrals: TONYA POSEY MD [Staff Physician] - 3-5 Days Time of Disposition: 11:23
[2019-05-18 10:56] LABS: Hematocrit 30.4 % (30.3-42.9); Hemoglobin 10.1 gm/dl (10.1-14.3); Mean Corpuscular HGB Conc 33 % (30-34); Mean Corpuscular Volume 99 fl (79-97); Platelet Count 105 K/mm3 (140-440); Red Blood Count 3.08 M/mm3 (3.65-5.03); Red Cell Distribution Width 15.3 % (13.2-15.2)
[2019-05-18 11:14] LABS: BUN/Creatinine Ratio 4; Blood Urea Nitrogen 21 mg/dL (7-17); Calcium 8.9 mg/dL (8.4-10.2); Hemolysis Index 5
[2019-05-18 11:41] VITALS: BP 173/80
== END 2019-05-18 11:39 | disposition home or self-care (01) ==
LOC: ED 09:44
DX: I12.0 Hypertensive chronic kidney disease with stage 5 chronic kidney disease or end stage renal disease (principal); E11.22 Type 2 diabetes mellitus with diabetic chronic kidney disease; N18.6 End stage renal disease; E21.3 Hyperparathyroidism, unspecified; Z99.2 Dependence on renal dialysis; Z98.890 Other specified postprocedural states; Z79.899 Other long term (current) drug therapy
CPT/HCPCS: 36415; 80048; 83880; 85027; 96374; 99284; J0360

== ENCOUNTER 2019-06-14 11:32 | Emergency (ER) | payer MEDICARE ==
--- NOTE | 2019-06-14 13:03 | Event Note ---
ED Screening Note ED Screening Note: states she is losing her voice that began three days ago states she has generalized body aches N/V/D states she is having difficulty tolerating PO intake states she could not keep her HTN medication down +subjective fever +cough with mucus production PMHx HTN, ESRD-M,W,F, denies missing any dialysis treatments, DM LNMP: two days ago This initial assessment/diagnostic orders/clinical plan/treatment(s) is/are subject to change based on patients health status, clinical progression and re- assessment by fellow clinical providers in the ED. Further treatment and workup at subsequent clinical providers discretion. Patient/guardian urged not to elope from the ED as their condition may be serious if not clinically assessed and managed. Initial orders include: labs, CXR
--- NOTE | 2019-06-14 14:15 | XRay Report ---
CHEST 2 VIEWS INDICATION: productive cough, sub fever. COMPARISON: 12/15/2016 FINDINGS: Support devices: None. Heart: Mild cardiomegaly is slightly increased since the previous exam. Lungs/pleura: Mild central pulmonary venous congestion is identified. The lungs are clear otherwise. No evidence for pneumonia, pleural effusion or pneumothorax. Additional findings: None. IMPRESSION: Mild cardiomegaly and pulmonary venous congestion but no CHF. Signer Name: Marcus Galarza Jr, MD Signed: 06/14/2019 2:10 PM Workstation Name: [id number]
[2019-06-14 15:10] LABS: Basophils % (Auto) 0.5 % (0.0-1.8); Eosinophils # (Auto) 0.1 K/mm3 (0.0-0.4); Eosinophils % (Auto) 1.1 % (0.0-4.3); Hematocrit 31.4 % (30.3-42.9); Hemoglobin 10.2 gm/dl (10.1-14.3); Lymphocytes # (Auto) 0.5 K/mm3 (1.2-5.4); Lymphocytes % (Auto) 5.6 % (13.4-35.0); Mean Corpuscular HGB Conc 32 % (30-34); Mean Corpuscular Volume 100 fl (79-97); Monocytes # (Auto) 0.8 K/mm3 (0.0-0.8); Monocytes % (Auto) 9.4 % (0.0-7.3); Platelet Count 117 K/mm3 (140-440); Red Blood Count 3.16 M/mm3 (3.65-5.03); Red Cell Distribution Width 16.7 % (13.2-15.2)
[2019-06-14 15:35] LABS: Albumin 3.8 g/dL (3.9-5); Calcium 8.6 mg/dL (8.4-10.2)
[2019-06-14] MEDS ORDERED: SULFAMETHOXAZOLE/TRIMETHOPRIM 800/160MG DS TAB PO ONE (15:57)
[2019-06-14] MEDS ORDERED: predniSONE 20 MG TAB PO ONE (15:57)
[2019-06-14] MEDS ORDERED: ALBUTEROL 2.5 MG/3 ML NEBU IH ONE (15:57)
--- NOTE | 2019-06-14 16:04 | Emergency Department Report ---
Minor Respiratory - HPI Chief Complaint: Upper Respiratory Infection Stated Complaint: FLU SX Time Seen by Provider: 06/14/19 13:00 Duration: 3 Days Pain Location: Chest Severity: mild Minor Respiratory: Yes Sore Throat, Yes Able to Tolerate Fluids, Yes Cough, No Rhinorrhea, No Ear Pain, No Sick Contacts, No Hemoptysis, No Chest Pain, No Shortness of Breath, No Fever Other History: 33 YO AA COMES TO ER WITH WHAT SHE BELIEVES IS FLU. NO FEVER. NO TACHYCARDIA. PT IS ON ESRD HD- LAST YESTERDAY AND DUE TOMORROW. RUE FISTULA. CO CHILLS, COUGH AND SORE THROAT. HOME MEDS. BP ONLY. DM BUT IS DIET CONTROLLED AND SHE TAKES NO MEDS. ED Review of Systems ROS: Stated complaint: FLU SX Other details as noted in HPI Comment: All other systems reviewed and negative ED Past Medical Hx - Past Medical History Hx Hypertension: Yes Hx CVA: No Hx Heart Attack/AMI: No Hx Congestive Heart Failure: No Hx Diabetes: Yes Hx Pulmonary Embolism: No Hx Liver Disease: No Hx Renal Disease: Yes (MWF) Hx of Cancer: No Hx Sickle Cell Disease: No Hx Arthritis: No Hx Headaches / Migraines: No Hx Seizures: No Hx Kidney Stones: No Hx Psychiatric Treatment: No Hx Asthma: No Hx COPD: No Hx Tuberculosis: No Hx Dementia: No Hx HIV: No Additional medical history: hyperparathyroidism - Surgical History Past Surgical History?: Yes Additional Surgical History: Fistula to right arm. vas cath to right chest. - Family History Family history: no significant - Social History Smoking Status: Never Smoker Substance Use Type: None - Medications Home Medications: Home Medications Medication Instructions Recorded Confirmed Last Taken Type Labetalol HCl 300 mg PO BID 05/19/17 05/19/17 05/18/17 History Losartan Potassium [Cozaar] 50 mg PO BID 05/19/17 05/19/17 05/18/17 History Methyldopa [Aldomet] 500 mg PO DAILY 05/19/17 05/19/17 05/18/17 History Cholecalciferol Vit D3 [Vitamin D3 2,000 unit PO DAILY tablet 05/21/17 Unknown Rx 1,000 UNIT TAB] Methyldopa [Aldomet] 500 mg PO DAILY tablet 05/21/17 Unknown Rx amLODIPine 10 mg PO DAILY tablet 05/21/17 Unknown Rx hydrALAZINE [Apresoline TAB] 25 mg PO Q8HR #90 tablet 05/21/17 Unknown Rx labetaloL [Labetalol 100mg TAB] 300 mg PO BID tablet 05/21/17 Unknown Rx Fluticasone [Flonase] 1 spray NS QDAY #1 bottle 06/14/19 Unknown Rx levoFLOXacin [Levaquin] 250 mg PO Q48H #11 tablet 06/14/19 Unknown Rx predniSONE [Deltasone] 20 mg PO DAILY #5 tablet 06/14/19 Unknown Rx Minor Respiratory Exam - Exam General: Vital signs noted. No distress. Alert and acting appropriately. HEENT: Yes Moist Mucous Membranes, No Pharyngeal Erythema, No Pharyngeal Exudates, No Rhinorrhea, No Conjuctival Injection, No Frontal Tenderness, No Maxillary Tenderness Ear: Neither TM Bulge, Neither TM Erythema, Neither EAC Pain, Neither EAC Discharge Neck: Yes Adenopathy (HOARSE; BOGGY UVULA; ABC INTACT, CONTROLLING SECRETIONS; TAKING PO), Yes Supple Lungs: Yes Good Air Exchange, Yes Cough, No Wheezes, No Ronchi, No Stridor, No Labored Respirations, No Retractions, No Use of Accessory Muscles, No Other Abnormal Lung Sounds Heart: Yes Regular, No Murmur Abdomen: Yes Normal Bowel Sounds, No Tenderness, No Peritoneal Signs Skin: No Rash, No Edema Neurologic: Alert and oriented, no deficits. Musculoskeletal: Unremarkable. ED Course Vital Signs 06/14/19 12:42 Temperature 98.9 F Pulse Rate 76 Respiratory 22 Rate Blood Pressure 217/91 O2 Sat by Pulse 90 Oximetry - Reevaluation(s) Reevaluation #1: 06/14/19 16:14 DISCUSSED MED DOSING WITH GEOVANY IN PHARMACY ED Medical Decision Making - Lab Data Result diagrams: 06/14/19 14:40 06/14/19 14:40 - Radiology Data Radiology results: report reviewed, image reviewed - Medical Decision Making Lab Results 06/14/19 06/14/19 Range/Units 14:40 14:40 WBC 8.2 (4.5-11.0) K/mm3 RBC 3.16 L (3.65-5.03) M/mm3 Hgb 10.2 (10.1-14.3) gm/dl Hct 31.4 (30.3-42.9) % MCV 100 H (79-97) fl MCH 32 (28-32) pg MCHC 32 (30-34) % RDW 16.7 H (13.2-15.2) % Plt Count 117 L (140-440) K/mm3 Lymph % (Auto) 5.6 L (13.4-35.0) % Roberts % (Auto) 9.4 H (0.0-7.3) % Eos % (Auto) 1.1 (0.0-4.3) % Baso % (Auto) 0.5 (0.0-1.8) % Lymph # 0.5 L (1.2-5.4) K/mm3 Roberts # 0.8 (0.0-0.8) K/mm3 Eos # 0.1 (0.0-0.4) K/mm3 Baso # 0.0 (0.0-0.1) K/mm3 Seg Neutrophils % 83.4 H (40.0-70.0) % Seg Neutrophils # 6.8 (1.8-7.7) K/mm3 Sodium 139 (137-145) mmol/L Potassium 4.8 (3.6-5.0) mmol/L Chloride 97.8 L (98-107) mmol/L Carbon Dioxide 20 L (22-30) mmol/L Anion Gap 26 mmol/L BUN 55 H (7-17) mg/dL Creatinine 8.7 H (0.7-1.2) mg/dL Estimated GFR 6 ml/min BUN/Creatinine Ratio 6 % Glucose 99 (65-100) mg/dL Calcium 8.6 (8.4-10.2) mg/dL Total Bilirubin 0.60 (0.1-1.2) mg/dL AST 22 (5-40) units/L ALT 23 (7-56) units/L Alkaline Phosphatase 136 H (35-129) units/L Total Protein 6.7 (6.3-8.2) g/dL Albumin 3.8 L (3.9-5) g/dL Albumin/Globulin Ratio 1.3 % Vital Signs 06/14/19 12:42 Temperature 98.9 F Pulse Rate 76 Respiratory 22 Rate Blood Pressure 217/91 O2 Sat by Pulse 90 Oximetry ESRD-HD YESTERDAY RA FISTULA K NORMAL XRAY NOTED UVULA EDEMATOUS HOARSE VOICE MILD WHEEZING NO FEVER NO CONSOLIDATION ON XRAY VSS NO TACHY NO HYPOTENSION DIET CONTROLLED DM MEDICATED IN ER DC HOME WITH DC POC INCLUDING HD IN AM AND FOLLOW UP WITH PCP REFERRAL GIVEN TAKING PO NO CP NO SOB - Differential Diagnosis URTI IN ESRD Critical care attestation.: If time is entered above; I have spent that time in minutes in the direct care of this critically ill patient, excluding procedure time. ED Disposition Clinical Impression: Diabetes mellitus, URTI (acute upper respiratory infection), CKD (chronic kidney disease) Disposition: DC-01 TO HOME OR SELFCARE Is pt being admited?: No Does the pt Need Aspirin: No Condition: Stable Instructions: Upper Respiratory Infection (ED) Additional Instructions: TAKE MEDS ORDERED TODAY STAY WELL HYDRATED HD IN AM FOLLOW UP WITH PCP IN 48 HOURS TO BE SURE YOU ARE GETTING BETTER DIET AND ACTIVITY TOLERATED MOTRIN OR TYLENOL FOR PAIN OR FEVER. Prescriptions: predniSONE [Deltasone] 20 mg PO DAILY #5 tablet Fluticasone [Flonase] 1 spray NS QDAY #1 bottle levoFLOXacin [Levaquin] 250 mg PO Q48H #11 tablet Referrals: TONYA POSEY MD [Staff Physician] - 3-5 Days Forms: Work/School Release Form(ED) Time of Disposition: 15:58
[2019-06-14 16:56] VITALS: BP 196/88
== END 2019-06-14 16:53 | disposition home or self-care (01) ==
LOC: ED 11:32
DX: J06.9 Acute upper respiratory infection, unspecified (principal); I12.0 Hypertensive chronic kidney disease with stage 5 chronic kidney disease or end stage renal disease; E11.22 Type 2 diabetes mellitus with diabetic chronic kidney disease; N18.6 End stage renal disease; E21.3 Hyperparathyroidism, unspecified; Z98.890 Other specified postprocedural states; Z79.899 Other long term (current) drug therapy
CPT/HCPCS: 36415; 71046; 80053; 85025; 99284; J7512; 94640

== ENCOUNTER 2019-08-10 19:59 | Emergency (ER) | payer MEDICARE ==
--- NOTE | 2019-08-10 20:57 | Emergency Department Report ---
Blank Doc - Documentation Documentation: 33-year-old female that presents with abdominal pain with n/v. This initial assessment/diagnostic orders/clinical plan/treatment(s) is/are subject to change based on patient's health status, clinical progression and re- assessment by fellow clinical providers in the ED. Further treatment and workup at subsequent clinical providers discretion. Patient/guardians urged not to elope from the ED as their condition may be serious if not clinically assessed and managed. Initial orders include: 1- Patient sent to [facility] for further evaluation and treatment 2- labs 3- UA
[2019-08-10 21:19] LABS: Basophils # (Auto) 0.1 K/mm3 (0.0-0.1); Basophils % (Auto) 2.2 % (0.0-1.8); Eosinophils # (Auto) 0.2 K/mm3 (0.0-0.4); Eosinophils % (Auto) 6.6 % (0.0-4.3); Hematocrit 33.6 % (30.3-42.9); Hemoglobin 10.9 gm/dl (10.1-14.3); Lymphocytes # (Auto) 0.5 K/mm3 (1.2-5.4); Lymphocytes % (Auto) 16.2 % (13.4-35.0); Mean Corpuscular HGB Conc 32 % (30-34); Mean Corpuscular Volume 98 fl (79-97); Monocytes # (Auto) 0.3 K/mm3 (0.0-0.8); Monocytes % (Auto) 9.9 % (0.0-7.3); Platelet Count 123 K/mm3 (140-440); Red Blood Count 3.43 M/mm3 (3.65-5.03); Red Cell Distribution Width 16.1 % (13.2-15.2)
[2019-08-10 21:39] LABS: Albumin 4.2 g/dL (3.9-5); Calcium 8.7 mg/dL (8.4-10.2)
[2019-08-10] MEDS ORDERED: ONDANSETRON 4 MG/2 ML INJ IV ONE (22:35)
[2019-08-10] MEDS ORDERED: SODIUM CHLORIDE 0.9% 500 ML 500 ML IV ONE (22:35)
[2019-08-10] MEDS ORDERED: hydrALAZINE 20 MG/1 ML INJ IV ONE (22:46)
--- NOTE | 2019-08-10 22:46 | Emergency Department Report ---
ED N/V/D HPI - General Chief complaint: Nausea/Vomiting/Diarrhea Stated complaint: VOMITING BLOOD PRESSURE PROBLEM HEADACHE ABD PAIN Time Seen by Provider: 08/10/19 20:56 Source: patient Mode of arrival: Ambulatory Limitations: No Limitations - History of Present Illness Initial comments: Patient is a 33-year-old female that presents the emergency room with complaints of nausea, vomiting, diarrhea and abdominal pain. Patient states she threw up twice in the last 24 hours. Patient denies blood in her vomitus. Patient denies blood in her diarrhea. Patient states the abdominal pain is in her epigastric region. Patient states it is a 3 out of 10. Patient states her abdominal pain on arrival was an 8 out of 10 but has improved. Patient states that the abdominal pain is worse with movement, vomiting and palpation. Patient states the pain is better with rest. Patient denies fever and chills. Patient states she has a history of gastroparesis. Patient also complains of a headache. Patient states she is having headache due to her blood pressure being high patient states her blood pressure is high and has been high for a while and the patient is compliant with all of her medications. Patient states she is on dialysis. Patient after dialysis schedule is Thursday. Patient states she had a full dialysis treatment this morning without difficulties. MD complaint: nausea, vomiting, diarrhea, abdominal pain -: Sudden Description of Vomiting: watery Description of Diarrhea: water Associated Abdominal Pain: Yes Location: epigastric Radiation: none Pain Scale: 3 Quality: aching Consistency: constant Improves with: rest Worsens with: vomiting, movement Associated Symptoms: headaches, nausea/vomiting. denies: myalgias, chest pain, cough, diaphoresis, fever/chills, loss of appetite, malaise, rash, dysuria, shortness of breath, syncope, weakness - Related Data Home Medications Medication Instructions Recorded Confirmed Last Taken Labetalol HCl 300 mg PO BID 05/19/17 05/19/17 05/18/17 Losartan Potassium [Cozaar] 50 mg PO BID 05/19/17 05/19/17 05/18/17 Methyldopa [Aldomet] 500 mg PO DAILY 05/19/17 05/19/17 05/18/17 Previous Rx's Medication Instructions Recorded Last Taken Type Cholecalciferol Vit D3 [Vitamin D3 2,000 unit PO DAILY tablet 05/21/17 Unknown Rx 1,000 UNIT TAB] Methyldopa [Aldomet] 500 mg PO DAILY tablet 05/21/17 Unknown Rx amLODIPine 10 mg PO DAILY tablet 05/21/17 Unknown Rx hydrALAZINE [Apresoline TAB] 25 mg PO Q8HR #90 tablet 05/21/17 Unknown Rx labetaloL [Labetalol 100mg TAB] 300 mg PO BID tablet 05/21/17 Unknown Rx Fluticasone [Flonase] 1 spray NS QDAY #1 bottle 06/14/19 Unknown Rx levoFLOXacin [Levaquin] 250 mg PO Q48H #11 tablet 06/14/19 Unknown Rx predniSONE [Deltasone] 20 mg PO DAILY #5 tablet 06/14/19 Unknown Rx Ondansetron [Zofran Odt] 4 mg PO Q6HR PRN #25 tab.rapdis 08/11/19 Unknown Rx Allergies Allergy/AdvReac Type Severity Reaction Status Date / Time No Known Allergies Allergy Verified 10/31/18 16:05 ED Review of Systems ROS: Stated complaint: VOMITING BLOOD PRESSURE PROBLEM HEADACHE ABD PAIN Other details as noted in HPI Constitutional: denies: chills, fever Eyes: denies: eye pain, eye discharge, vision change ENT: denies: ear pain, throat pain Respiratory: denies: cough, shortness of breath, wheezing Cardiovascular: denies: chest pain, palpitations Endocrine: no symptoms reported Gastrointestinal: abdominal pain, nausea, vomiting, diarrhea Genitourinary: denies: urgency, dysuria, discharge Musculoskeletal: denies: back pain, joint swelling, arthralgia Skin: denies: rash, lesions Neurological: headache. denies: weakness, paresthesias Psychiatric: denies: anxiety, depression Hematological/Lymphatic: denies: easy bleeding, easy bruising ED Past Medical Hx - Past Medical History Previous Medical History?: Yes Hx Hypertension: Yes Hx CVA: No Hx Heart Attack/AMI: No Hx Congestive Heart Failure: No Hx Diabetes: Yes Hx Pulmonary Embolism: No Hx Liver Disease: No Hx Renal Disease: Yes (MWF) Hx Sickle Cell Disease: No Hx Arthritis: No Hx Headaches / Migraines: No Hx Seizures: No Hx Kidney Stones: No Hx Psychiatric Treatment: No Hx Asthma: No Hx COPD: No Hx Tuberculosis: No Hx Dementia: No Hx HIV: No Additional medical history: hyperparathyroidism - Surgical History Past Surgical History?: Yes Additional Surgical History: Fistula to right arm. vas cath to right chest removed ?2018 - Family History Family history: no significant - Social History Smoking Status: Never Smoker Substance Use Type: None - Medications Home Medications: Home Medications Medication Instructions Recorded Confirmed Last Taken Type Labetalol HCl 300 mg PO BID 05/19/17 05/19/17 05/18/17 History Losartan Potassium [Cozaar] 50 mg PO BID 05/19/17 05/19/17 05/18/17 History Methyldopa [Aldomet] 500 mg PO DAILY 05/19/17 05/19/17 05/18/17 History Cholecalciferol Vit D3 [Vitamin D3 2,000 unit PO DAILY tablet 05/21/17 Unknown Rx 1,000 UNIT TAB] Methyldopa [Aldomet] 500 mg PO DAILY tablet 05/21/17 Unknown Rx amLODIPine 10 mg PO DAILY tablet 05/21/17 Unknown Rx hydrALAZINE [Apresoline TAB] 25 mg PO Q8HR #90 tablet 05/21/17 Unknown Rx labetaloL [Labetalol 100mg TAB] 300 mg PO BID tablet 05/21/17 Unknown Rx Fluticasone [Flonase] 1 spray NS QDAY #1 bottle 06/14/19 Unknown Rx levoFLOXacin [Levaquin] 250 mg PO Q48H #11 tablet 06/14/19 Unknown Rx predniSONE [Deltasone] 20 mg PO DAILY #5 tablet 06/14/19 Unknown Rx Ondansetron [Zofran Odt] 4 mg PO Q6HR PRN #25 tab.rapdis 08/11/19 Unknown Rx ED Physical Exam - General Limitations: No Limitations General appearance: alert, in no apparent distress - Head Head exam: Present: atraumatic, normocephalic - Eye Eye exam: Present: normal appearance, PERRL, EOMI Pupils: Present: normal accommodation - ENT ENT exam: Present: mucous membranes moist - Neck Neck exam: Present: normal inspection - Respiratory Respiratory exam: Present: normal lung sounds bilaterally. Absent: respiratory distress, wheezes, rales - Cardiovascular Cardiovascular Exam: Present: regular rate, normal rhythm. Absent: systolic murmur, diastolic murmur, rubs, gallop - GI/Abdominal GI/Abdominal exam: Present: soft, tenderness (Tenderness palpation over epigastrium), normal bowel sounds. Absent: distended, guarding, rebound - Rectal Rectal exam: Present: deferred - Extremities Exam Extremities exam: Present: normal inspection - Back Exam Back exam: Present: normal inspection - Neurological Exam Neurological exam: Present: alert, oriented X3 - Psychiatric Psychiatric exam: Present: normal affect, normal mood - Skin Skin exam: Present: warm, dry, intact, normal color. Absent: rash ED Course Vital Signs 08/10/19 08/10/19 08/10/19 20:05 22:09 22:16 Temperature 98.8 F 98.3 F Pulse Rate 72 73 Respiratory 14 18 Rate Blood Pressure 176/78 202/83 O2 Sat by Pulse 98 97 Oximetry 08/10/19 08/10/19 08/11/19 23:16 23:40 00:46 Temperature Pulse Rate 74 74 69 Respiratory 16 17 16 Rate Blood Pressure 210/98 205/94 182/82 O2 Sat by Pulse 97 92 94 Oximetry 08/11/19 01:00 Temperature Pulse Rate 70 Respiratory 15 Rate Blood Pressure 177/82 O2 Sat by Pulse 92 Oximetry - Reevaluation(s) Reevaluation #1: Initial evaluation done. Patient will be given fluids, Zofran, hydralazine. Patient's current blood pressure is 203/80. We will continue to monitor patient's blood pressure. Patient is currently not vomiting but is nauseous. 08/10/19 22:56 Reevaluation #2: Patient's blood pressure is better. Patient denies pain. Patient denies nausea vomiting. I discussed all results and clinical findings with patient. I discussed plan of care with patient. Patient agrees with plan of care. Patient is stable for discharge. Patient will be discharged home. Patient given discharge instructions. Patient voiced understanding of discharge instructions. 08/11/19 00:51 - Consultations Consultation #1: I discussed case with Dr. Torres, guest relations executive. Dr. Zuñiga recommends 1 dose of 30mg of Kayexalate and discharged home and follow-up with her guest relations executive and dialysis clinic. 08/11/19 00:44 ED Medical Decision Making - Lab Data Result diagrams: 08/10/19 21:00 08/10/19 21:00 - Medical Decision Making Patient is a 33-year-old female that presents emergency room with complaints of vomiting, headache, elevated blood pressure, epigastric pain. Patient's clinical findings are consistent with a gastroenteritis, nausea, vomiting, di arrhea. Patient responded well to therapy. Patient's also found to have malignant hypertension and given hydralazine and blood pressure responded well. Patient did not have any vomiting or nausea in the ER. Patient's abdominal pain relieved with fluids and Zofran. On patient's labs patient's labs are consistent with end-stage renal disease however the patient found to have hyperkalemia. Patient's nephrology team consulted for elevated potassium and just having dialysis the same day. Dr. Zuñiga recommends discharge, 1 dose of Kayexalate. Patient received Kayexalate prior to discharge. Patient given a prescription for Zofran. Patient stable for discharge and discharged home. - Differential Diagnosis N/V/D, gastroenteritis of viral origin, headache, malignant htn, abd pain Critical Care Time: Yes Critical care time in (mins) excluding proc time.: 35 Critical care attestation.: If time is entered above; I have spent that time in minutes in the direct care of this critically ill patient, excluding procedure time. Critical Care Time: 35 minutes ED Disposition Clinical Impression: Gastroenteritis, Hyperkalemia, Hypertensive emergency, ESRD (end stage renal disease) Nausea & vomiting Qualifiers: Vomiting type: unspecified Vomiting Intractability: non-intractable Qualified Code(s): R11.2 - Nausea with vomiting, unspecified Diarrhea Qualifiers: Diarrhea type: unspecified type Qualified Code(s): R19.7 - Diarrhea, unspecified Disposition: DC-01 TO HOME OR SELFCARE Is pt being admited?: No Does the pt Need Aspirin: No Condition: Stable Instructions: Traveler's Diarrhea (ED), Chronic Kidney Disease (ED), Gastroenteritis (ED), Hyperkalemia (ED), Acute Nausea and Vomiting (ED), Hypertension (ED) Additional Instructions: Patient to follow-up with primary care in 2 to 3 days. Patient to follow-up with with nephrology and dialysis clinic in 24 hours. Patient to continue a renal diet and low potassium diet. Patient to rest. Patient to increase water. patient to take Tylenol or ibuprofen as needed for pain. Patient to take meds as directed. Patient to return to the ER if condition worsens, changes or new symptoms arise. Prescriptions: Ondansetron [Zofran Odt] 4 mg PO Q6HR PRN #25 tab.rapdis PRN Reason: Nausea And Vomiting Referrals: IDALIA [place] MD SHAE [Primary Care Provider] - 2-3 Days CATRINA BAE MD [Staff Physician] - 24 Hours Forms: Work/School Release Form(ED) Time of Disposition: 00:57
[2019-08-11] MEDS ORDERED: SODIUM POLYSTYRENE 15 GM/60 ML ORAL LIQD PR ONE (00:46)
[2019-08-11 01:08] VITALS: BP 177/82
== END 2019-08-11 01:20 | disposition home or self-care (01) ==
LOC: ED 19:59
DX: K52.9 Noninfective gastroenteritis and colitis, unspecified (principal); E87.5 Hyperkalemia; I12.0 Hypertensive chronic kidney disease with stage 5 chronic kidney disease or end stage renal disease; E11.22 Type 2 diabetes mellitus with diabetic chronic kidney disease; N18.6 End stage renal disease; Z98.890 Other specified postprocedural states; Z79.899 Other long term (current) drug therapy
CPT/HCPCS: 36415; 80053; 83690; 84703; 85025; 96374; 96375; 99291; J0360; J2405; J7040

== ENCOUNTER 2019-10-31 10:38 | Emergency (ER) | payer MEDICARE ==
[2019-10-31] MEDS ORDERED: BUTALB/ACETAMINOPHEN/CAFFEINE TAB PO ONE (15:37)
[2019-10-31] MEDS ORDERED: hydrALAZINE 20 MG/1 ML INJ IV ONE (17:29)
--- NOTE | 2019-10-31 17:53 | Emergency Department Report ---
ED General Adult HPI - General Chief complaint: High BP Stated complaint: BP HIGH Time Seen by Provider: 10/31/19 15:08 Source: patient Mode of arrival: Ambulatory Limitations: No Limitations - History of Present Illness Initial comments: 33-year-old -[place] female patient with history of hypertension, ESRD on dialysis, and CHF presents from her hemodialysis clinic for elevated blood pressure. Patient states she was referred to the emergency department after completing her dialysis treatment today for her blood pressure being elevated. She admits to a 7 out of 10 headache currently, however she denies any vision changes, chest pain, shortness of breath, swelling, numbness/tingling/weakness in her limbs, confusion, difficulty with speech, or other complaints or concerns. Patient states her blood pressure normally runs around 120/80. Patient also reports she is taking 5 different blood pressure medications including hydralazine, labetalol, and olmesartan, and is compliant with all of them. Patient states she follows with Dr. Bae, nephrology, and receives dialysis on Thursday Severity scale (0 -10): 10 - Related Data Home Medications Medication Instructions Recorded Confirmed Last Taken Labetalol HCl 300 mg PO BID 05/19/17 05/19/17 05/18/17 Losartan Potassium [Cozaar] 50 mg PO BID 05/19/17 05/19/17 05/18/17 Methyldopa [Aldomet] 500 mg PO DAILY 05/19/17 05/19/17 05/18/17 Previous Rx's Medication Instructions Recorded Last Taken Type Cholecalciferol Vit D3 [Vitamin D3 2,000 unit PO DAILY tablet 05/21/17 Unknown Rx 1,000 UNIT TAB] Methyldopa [Aldomet] 500 mg PO DAILY tablet 05/21/17 Unknown Rx amLODIPine 10 mg PO DAILY tablet 05/21/17 Unknown Rx hydrALAZINE [Apresoline TAB] 25 mg PO Q8HR #90 tablet 05/21/17 Unknown Rx labetaloL [Labetalol 100mg TAB] 300 mg PO BID tablet 05/21/17 Unknown Rx Fluticasone [Flonase] 1 spray NS QDAY #1 bottle 06/14/19 Unknown Rx levoFLOXacin [Levaquin] 250 mg PO Q48H #11 tablet 06/14/19 Unknown Rx predniSONE [Deltasone] 20 mg PO DAILY #5 tablet 06/14/19 Unknown Rx Ondansetron [Zofran Odt] 4 mg PO Q6HR PRN #25 tab.rapdis 08/11/19 Unknown Rx Allergies Allergy/AdvReac Type Severity Reaction Status Date / Time No Known Allergies Allergy Verified 10/31/18 16:05 ED Review of Systems ROS: Stated complaint: BP HIGH Other details as noted in HPI Constitutional: denies: chills, fever Eyes: denies: eye pain, eye discharge Respiratory: denies: cough, shortness of breath Cardiovascular: denies: chest pain, palpitations Gastrointestinal: denies: abdominal pain, nausea, vomiting Skin: denies: rash Neurological: headache. denies: numbness, paresthesias, abnormal gait ED Past Medical Hx - Past Medical History Previous Medical History?: Yes Hx Hypertension: Yes Hx CVA: No Hx Heart Attack/AMI: No Hx Congestive Heart Failure: No Hx Diabetes: Yes Hx Pulmonary Embolism: No Hx Liver Disease: No Hx Renal Disease: Yes (MW) Hx Sickle Cell Disease: No Hx Arthritis: No Hx Headaches / Migraines: No Hx Seizures: No Hx Kidney Stones: No Hx Psychiatric Treatment: No Hx Asthma: No Hx COPD: No Hx Tuberculosis: No Hx Dementia: No Hx HIV: No Additional medical history: hyperparathyroidism - Surgical History Past Surgical History?: Yes Additional Surgical History: Fistula to right arm. vas cath to right chest removed ?2018 - Social History Smoking Status: Never Smoker Substance Use Type: None - Medications Home Medications: Home Medications Medication Instructions Recorded Confirmed Last Taken Type Labetalol HCl 300 mg PO BID 05/19/17 05/19/17 05/18/17 History Losartan Potassium [Cozaar] 50 mg PO BID 05/19/17 05/19/17 05/18/17 History Methyldopa [Aldomet] 500 mg PO DAILY 05/19/17 05/19/17 05/18/17 History Cholecalciferol Vit D3 [Vitamin D3 2,000 unit PO DAILY tablet 05/21/17 Unknown Rx 1,000 UNIT TAB] Methyldopa [Aldomet] 500 mg PO DAILY tablet 05/21/17 Unknown Rx amLODIPine 10 mg PO DAILY tablet 05/21/17 Unknown Rx hydrALAZINE [Apresoline TAB] 25 mg PO Q8HR #90 tablet 05/21/17 Unknown Rx labetaloL [Labetalol 100mg TAB] 300 mg PO BID tablet 05/21/17 Unknown Rx Fluticasone [Flonase] 1 spray NS QDAY #1 bottle 06/14/19 Unknown Rx levoFLOXacin [Levaquin] 250 mg PO Q48H #11 tablet 06/14/19 Unknown Rx predniSONE [Deltasone] 20 mg PO DAILY #5 tablet 06/14/19 Unknown Rx Ondansetron [Zofran Odt] 4 mg PO Q6HR PRN #25 tab.rapdis 08/11/19 Unknown Rx ED Physical Exam - General Limitations: No Limitations General appearance: alert, in no apparent distress - Head Head exam: Present: atraumatic, normocephalic - Eye Eye exam: Present: normal appearance - ENT ENT exam: Present: mucous membranes moist - Neck Neck exam: Present: normal inspection - Respiratory Respiratory exam: Present: normal lung sounds bilaterally - Cardiovascular Cardiovascular Exam: Present: regular rate, normal rhythm - GI/Abdominal GI/Abdominal exam: Present: soft. Absent: distended, tenderness - Back Exam Back exam: Present: normal inspection - Neurological Exam Neurological exam: Present: alert, oriented X3, normal gait. Absent: motor sensory deficit - Psychiatric Psychiatric exam: Present: normal affect, normal mood - Skin Skin exam: Present: warm, dry, intact, normal color. Absent: rash ED Course Vital Signs 10/31/19 10/31/19 10/31/19 11:41 15:24 16:08 Temperature 97.6 F 97.8 F Pulse Rate 73 71 71 Respiratory 18 17 Rate Blood Pressure 190/59 202/90 200/90 Blood Pressure [Left] O2 Sat by Pulse 96 97 Oximetry 10/31/19 10/31/19 10/31/19 17:25 18:04 18:35 Temperature 98.1 F Pulse Rate 71 71 66 Respiratory 20 Rate Blood Pressure 216/101 216/101 Blood Pressure 189/79 [Left] O2 Sat by Pulse 93 Oximetry ED Medical Decision Making - Medical Decision Making Patient here with elevated blood pressure after receiving dialysis today. Patient given p.o. labetalol, however blood pressure increased to 216/101 from 202/90. After IV hydralazine, patient blood pressure now 189/79. Patient states her headache is still a 7/10 in severity. Patient states Tylenol works well, 650 mg p.o. given. Patient to be reevaluated by CHELSEY Salcedo. Critical care attestation.: If time is entered above; I have spent that time in minutes in the direct care of this critically ill patient, excluding procedure time. ED Disposition Clinical Impression: Uncontrolled hypertension Headache, tension-type Qualifiers: Headache chronicity pattern: acute headache Intractability: not intractable Qualified Code(s): G44.209 - Tension-type headache, unspecified, not intractable Disposition: DC-01 TO HOME OR SELFCARE Is pt being admited?: No Condition: Stable Instructions: Hypertension (ED) Referrals: CATRINA BAE MD [Staff Physician] - 2-3 Days (For reevaluation of your blood pressure and medications)
[2019-10-31 18:36] VITALS: BP 189/79
[2019-10-31] MEDS ORDERED: ACETAMINOPHEN 325 MG TAB PO ONE (18:50)
== END 2019-10-31 19:36 | disposition home or self-care (01) ==
LOC: ED 10:38
DX: G44.209 Tension-type headache, unspecified, not intractable (principal); E11.22 Type 2 diabetes mellitus with diabetic chronic kidney disease; I12.0 Hypertensive chronic kidney disease with stage 5 chronic kidney disease or end stage renal disease; N18.6 End stage renal disease; Z99.2 Dependence on renal dialysis; Z98.890 Other specified postprocedural states; Z79.899 Other long term (current) drug therapy
CPT/HCPCS: 96374; 99282; J0360